=== PATIENT | male | born 1940 | race Caucasian/White ===

== ENCOUNTER 2019-12-24 07:33 | Outpatient (CLI) | payer MEDICARE, SELFPAY ==
[2019-12-24 08:01] LABS: Anion Gap 9 mmol/L (8-16); Blood Urea Nitrogen 27 mg/dL (9-20); Carbon Dioxide 24 mmol/L (22-30); Chloride 103 mmol/L (98-107); Estimated Glomerular Filt Rate 54; Glucose 101 mg/dL (75-110); Potassium 4.5 mmol/L (3.4-5.0); Sodium 136 mmol/L (137-145)
== END 2019-12-24 07:34 | disposition home or self-care (01) ==
PROVIDERS: PCP Internal Medicine; Visit Provider Nurse Practitioner
DX: R79.89 Other specified abnormal findings of blood chemistry (principal); I10 Essential (primary) hypertension
CPT/HCPCS: 36415; 80048

== ENCOUNTER 2020-03-10 12:18 | Outpatient (CLI) | payer MEDICARE, SELFPAY ==
--- NOTE | ~2020-03-10 | XR_ITS ---
EXAMINATION: XR chest 2V DATE: 03/10/2020 12:34 INDICATION: Shortness of breath. TECHNIQUE: Frontal and lateral views of the chest were obtained. COMPARISON: Chest 2 views 12/10/2013 FINDINGS: There is mild scarring at right lung base. No pleural effusion or pneumothorax. The heart s ize is normal. There is a left shoulder arthroplasty. IMPRESSION: 1. Stable mild scarring at right lung base. Reviewed, dictated and finalized at location A.
== END 2020-03-10 12:19 | disposition home or self-care (01) ==
PROVIDERS: PCP Internal Medicine; Visit Provider Nurse Practitioner
DX: R06.02 Shortness of breath (principal); R91.8 Other nonspecific abnormal finding of lung field
CPT/HCPCS: 71046

== ENCOUNTER 2020-04-15 07:25 | Outpatient (CLI) | payer MEDICARE, SELFPAY ==
--- NOTE | 2020-04-18 08:43 | WPDPFTINT ---
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 This pattern does not fit any particular disease or condition but may be seen in CHF, ILD or combination of medical conditions. Clinical correlation is advised.
== END 2020-04-15 07:26 | disposition home or self-care (01) ==
PROVIDERS: PCP Internal Medicine; Visit Provider Nurse Practitioner
DX: R06.02 Shortness of breath (principal)
CPT/HCPCS: 94060; 94726; 94729

== ENCOUNTER 2020-04-26 10:55 | Outpatient (CLI) | payer MEDICARE, SELFPAY ==
[2020-04-26 11:34] LABS: Basophils Absolute Auto 0.1 K/mm3 (0.0-0.1); Basophils Percent Auto 0.6 % (0.2-1.2); Eosinophils Absolute Auto 0.2 K/mm3 (0-0.3); Eosinophils Percent Auto 1.6 % (0-4.4); Hematocrit 48.2 % (42.0-52.0); Hemoglobin 16.2 g/dL (14.0-18.0); Immature Granulocyte Absolute 0.04 K/mm3 (0.00-0.031); Immature Granulocyte Percent A 0.3 % (0-0.5); Lymphocytes Absolute Auto 3.08 K/mm3 (0.9-3.2); Lymphocytes Percent Auto 25.8 % (18.3-44.2); Mean Corpuscular HGB Conc 33.6 g/dl (32-36); Mean Corpuscular Hemoglobin 30.1 pg (26-34); Mean Corpuscular Volume 89.4 fl (80-100); Mean Platelet Volume 10.7 fl (7.4-10.4); Monocytes Absolute Auto 0.9 K/mm3 (0.1-0.6); Monocytes Percent Auto 7.1 % (2.6-8.5); Neutrophils Absolute Auto 7.7 K/mm3 (1.3-6.7); Neutrophils Percent Auto 64.6 % (45.5-73.1); Platelet Count Result 200 k/mm3 (150-375); Red Blood Count 5.39 M/mm3 (4.6-6.20); Red Cell Distribution Width 13.6 % (11.5-14.5); White Blood Count 11.9 K/mm3 (4.5-10.0)
[2020-04-26 11:45] LABS: Anion Gap 8 mmol/L (8-16); Blood Urea Nitrogen 20 mg/dL (9-20); Calcium 9.2 mg/dL (8.4-10.2); Carbon Dioxide 25 mmol/L (22-30); Chloride 102 mmol/L (98-107); Estimated Glomerular Filt Rate > 60; Glucose 92 mg/dL (75-110); Potassium 4.2 mmol/L (3.4-5.0); Sodium 135 mmol/L (137-145)
== END 2020-04-26 10:56 | disposition home or self-care (01) ==
LOC: ANHLAB 10:58
PROVIDERS: PCP Internal Medicine; Visit Provider Clinical Nurse Specialist
DX: I10 Essential (primary) hypertension (principal)
CPT/HCPCS: 36415; 80048; 85025

== ENCOUNTER 2020-04-30 14:16 | Outpatient (CLI) | payer MEDICARE, SELFPAY ==
--- NOTE | ~2020-04-30 | CT_ITS ---
EXAMINATION: CT chest high resolution [facility] EXAM DATE: 04/30/2020 14:39 INDICATION: Z77.090 -asbestos exposure. TECHNIQUE: Spiral CT of the chest without contrast. HRCT Axial, coronal and sagittal images were rev iewed. Coronal maximum intensity pixel images of chest reviewed. The dose-length product (DLP) for this examination was 512.44 mGy-cm. The exposure was tailored according to patient size (auto mA exp osure control), and iterative reconstruction (ASIR) was used as additional dose reduction technique. There is no prior study for comparison. FINDINGS: Images are limited from respiratory motion. No calcified pleural plaques or definite nonca lcified plaques identified. No significant interlobular septal thickening on the HRCT. There are no pleural or pericardial effusions. Tracheobronchial tree is patent. There is no mediastinal, hilar or axillary lymphadenopathy. There is no pneumothorax. Mild cardiomegaly. There is mild coronary arterial calcification, arterial sclerosis. Upper abdomen is unremarkable. There is moderate thor acic spondylosis without osteoblastic or osteolytic lesions identified. Patient has left shoulder rep lacement. IMPRESSION: 1. Mild cardiomegaly. 2. Limited but no definite stigmata of asbestos exposure. Reviewed, dictated and finalized at location A. 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
== END 2020-04-30 14:17 | disposition home or self-care (01) ==
LOC: ANHIMG 14:23
PROVIDERS: PCP Internal Medicine; Visit Provider Nurse Practitioner
DX: Z77.090 Contact with and (suspected) exposure to asbestos (principal); I51.7 Cardiomegaly
CPT/HCPCS: 71250

== ENCOUNTER 2020-05-19 08:39 | Outpatient (CLI) | payer MEDICARE, SELFPAY ==
[2020-05-19 09:05] LABS: Basophils Absolute Auto 0.1 K/mm3 (0.0-0.1); Basophils Percent Auto 0.4 % (0.2-1.2); Eosinophils Absolute Auto 0.3 K/mm3 (0-0.3); Eosinophils Percent Auto 2.5 % (0-4.4); Hemoglobin 14.3 g/dL (14.0-18.0); Immature Granulocyte Absolute 0.03 K/mm3 (0.00-0.031); Immature Granulocyte Percent A 0.3 % (0-0.5); Lymphocytes Absolute Auto 4.08 K/mm3 (0.9-3.2); Lymphocytes Percent Auto 35.8 % (18.3-44.2); Mean Corpuscular HGB Conc 33.3 g/dl (32-36); Mean Corpuscular Hemoglobin 29.4 pg (26-34); Mean Corpuscular Volume 88.5 fl (80-100); Mean Platelet Volume 10.4 fl (7.4-10.4); Monocytes Absolute Auto 0.9 K/mm3 (0.1-0.6); Neutrophils Absolute Auto 6.1 K/mm3 (1.3-6.7); Platelet Count Result 225 k/mm3 (150-375); Red Blood Count 4.86 M/mm3 (4.6-6.20); Red Cell Distribution Width 13.8 % (11.5-14.5); White Blood Count 11.4 K/mm3 (4.5-10.0)
== END 2020-05-19 08:40 | disposition home or self-care (01) ==
LOC: ANHLAB 08:41
PROVIDERS: PCP Internal Medicine; Visit Provider Clinical Nurse Specialist
DX: D72.829 Elevated white blood cell count, unspecified (principal)
CPT/HCPCS: 36415; 85025

== ENCOUNTER 2020-05-31 07:37 | Outpatient (CLI) | payer MEDICARE, SELFPAY ==
--- NOTE | 2020-05-31 07:46 | ECHO_ITS ---
Patient Info Name: Nikko Hassan Age: 79 years : 1940 Gender: Male Ht: 70 in Wt: 250 lbs BSA: 2.41 m2 HR: 85 bpm BP: 168 / 79 mmHg Technical Quality: Good Exam Date: 05/31/2020 8:08 AM Exam Location: [facility] Patient Status: Outpatient Admit Date: 05/31/2020 Staff Ordering Physician: Yesi Troy Nurse Executive: Randy Bernabe RDCS, RT Attending Provider: Yesi Troy Referring Physician: Woodrow HERNÁNDEZ; Exam Type: CA echo doppler color flow Study Info Indications R06.02 - Shortness of breath Complete two-dimensional, color flow and Doppler transthoracic echocardiogram is performed. Summary 1. Complete two-dimensional, color flow and Doppler transthoracic echocardiogram is performed. 2. Left ventricular chamber dimension is normal. 3. Left ventricular systolic function is normal, estimated at 60-65%. 4. There is mildly increased left ventricular wall thickness. 5. The left ventricular diastolic function is grade I diastolic dysfunction. 6. E/e' 11 is mildly elevated. 7. There is moderate aortic valve sclerosis. 8. The mitral valve has mildly calcified annulus. 9. There is trace tricuspid valve regurgitation. 10. Mild pulmonary hypertension, estimated pulmonary arterial systolic pressure is 46 mmHg. Left Ventricle E/e' 11 is mildly elevated. Left ventricular chamber dimension is normal. Left ventricular systolic function is normal, estimated at 60-65%. There is mildly increased left ventricular wall thickness. The left ventricular diastolic function is grade I diastolic dysfunction. Right Ventricle Right ventricular chamber dimension is normal. Right ventricular systolic function is normal. Left Atria Left atrial chamber dimension is normal. Right Atria Right atrial chamber dimension is normal. Aortic Valve The aortic valve is trileaflet. There is moderate aortic valve sclerosis. There is no aortic valve stenosis. There is no aortic valve regurgitation. Pulmonic Valve There is no pulmonic regurgitation. Mitral Valve The mitral valve has mildly calcified annulus. There is no mitral valve stenosis. There is no mitral valve regurgitation. Tricuspid Valve There is trace tricuspid valve regurgitation. Mild pulmonary hypertension, estimated pulmonary arterial systolic pressure is 46 mmHg. Pericardium/Pleural There is no pericardial effusion. Inferior Vena Cava Normal inferior vena cava with >50% collapse upon inspiration consistent with normal right atrial pressure, 5 mmHg. Aorta The aortic root size at the sinus of Valsalva is normal. Left Ventricular Outflow Tract Name Value Normal LVOT 2D LVOT Diameter 2.0 cm LVOT Doppler LVOT Peak Gradient 5 mmHg LVOT Mean Gradient 3 mmHg LVOT VTI 26 cm LVOT VTI/AV VTI Ratio 0.6 LVOT Stroke Volume 83 ml LVOT CO 5.6 l/min LVOT CI 2.3 l/min/m2 Mitral Valve
== END 2020-05-31 07:38 | disposition home or self-care (01) ==
PROVIDERS: PCP Internal Medicine; Visit Provider Clinical Nurse Specialist
DX: R06.02 Shortness of breath (principal)
CPT/HCPCS: 93306

== ENCOUNTER 2020-08-13 07:42 | Outpatient (CLI) | payer MEDICARE, SELFPAY ==
--- NOTE | 2020-08-24 12:34 | WPDSIXMINUTE ---
Six Minute Walk This is a 6 minutes walk test. The test was performed and interpreted in accordance with the 2014 ERS/ATS task force guidelines. Findings: The patient's resting room air oxygen saturation measured by pulse oximetry was 96% and her heart rate was 79 bpm. Patient ambulated for 229 meters and oxygen saturation remained 94 to 97%. Heart rate at the end of the study was 82 bpm. There are no prior studies for comparison. Six Minute Walk Procedure Procedure Performed Pulmonary Stress Test (6 min walk)
== END 2020-08-13 07:43 | disposition home or self-care (01) ==
PROVIDERS: PCP Internal Medicine; Visit Provider Internal Medicine Critical Care Medicine
DX: R06.02 Shortness of breath (principal)
CPT/HCPCS: 94618

== ENCOUNTER → 2020-08-14 01:56 | Outpatient (CLI) | payer MEDICARE, SELFPAY ==
[2020-08-14 19:34] LABS: SARS-CoV-2 RNA PCR Negative
== END ==
PROVIDERS: PCP Internal Medicine; Visit Provider Internal Medicine Critical Care Medicine
DX: R68.89 Other general symptoms and signs (principal); Z20.822 Contact with and (suspected) exposure to COVID-19
CPT/HCPCS: C9803; U0003; U0005

== ENCOUNTER 2020-08-18 09:06 | Outpatient (CLI) | payer MEDICARE, SELFPAY ==
--- NOTE | 2020-09-03 13:06 | WPDSLEEPSTUD ---
Sleep Study Date of Study: 08/17/20 Ordering Provider: Cynthia Yee MD Interpreting Physician: Mago Benjamin MD Sleep Study Type: Split Polysomnogram Height: 1.78 m Weight: 111.13 kg Body Mass Index: 35.2 Neck Circumference (inches): 20 Holt: 1 Reason for Sleep Study Wakes up frequently at night to urinate, daytime naps, poor quality sleep Sleep History Nikko Hassan is a 80 year-old man with pulmonary hypertension on an echocardiogram, RVSP 43 mmHg. He was being evaluated for dyspnea on exertion over the last few years with wheezing on exhalation which tends to occur at night. His pulmonary function test shows combined obstructive and restrictive ventilatory defect. He has frequent nighttime awakenings to urinate, afternoon naps. This is what prompted his pulmonary doctor to inquire about sleep apnea. He does not complain of snoring loudly or awakening at night with heartburn and belching or coughing. He does not awaken from sleep feeling short of breath or he had trouble sleeping with a cold. He does not gasp for breath at night or have breathing problems observed by others. He rarely sweats excessively night. He does not notice his heart pounding or beating irregularly night. He rarely falls asleep during the day, never involuntarily or while driving. He does not fall asleep while exerting physical effort. He does not have loss of muscle tone was strong emotion. He does not have daytime difficulties due to excessive sleepiness, he is retired. He does not feel paralyzed on waking or falling asleep. He does not have vivid dreamlike scenes upon awakening or falling asleep. He does not feel afraid to go to sleep. He denies having nightmares. He does not remember his dreams. He does not have racing thoughts, feelings of sadness, depression or anxiety. He does not have muscular tension. He does not notice part of his body jerking. He does not kick at night or have crawling or aching feelings in his legs. He occasionally has leg pain at night. He does not have morning jaw pain. He does not grind his teeth during sleep and he is not bothered by pain during the day. He is not awakened by pain at night, does not wake up feeling stiff in the morning with sore achy muscles are pain in the neck and spine. Normal bedtime is 11:00 p.m. falling asleep within 20 minutes waking 2-3 times at night to go urinate. It takes him about 15 minutes to get back to sleep. He wakes between 6 and 7 in the morning. His weekend schedule is the same getting 6-7 hours of sleep at night. He sometimes feels refreshed after a short nap. Habits: Never smoked tobacco. Caffeine 1 per day. No alcohol. No recreational drugs. FOR[facility]LY [facility] Past Medical History Medical History BPH (benign prostatic hyperplasia) Chronic left shoulder pain Elevated serum creatinine Essential hypertension Hypercholesterolemia Leukocytosis Paresthesia of both lower extremities Family History Family History Mother Hypertension Sibling Hypertension Family history of malignant neoplasm Social History Social History Smoking status: Never smoker Second hand tobacco smoke exposure: No Alcohol intake: never Medications Home Medications Medication Instructions Recorded Confirmed Type tamsulosin 0.4 mg capsule 0.4 mg PO DAILY 04/02/19 05/03/20 History lisinopril 30 mg tablet See Rx Instructions .ROUTE 01/26/20 05/03/20 Rx .COMPLEX #90 tablet aspirin 81 mg tablet,delayed 81 mg PO DAILY 03/10/20 05/03/20 History release atorvastatin 10 mg tablet 10 mg PO DAILY #90 tablet 06/14/20 Rx fluticasone propionate 115 2 puff INHALATION BID #12 g 08/16/20 Rx mcg-salmeterol 21 mcg/actuation HFA inhaler inhalational spacing device #1 ea 08/16/20 Rx Sleep Procedure This test wa
[2020-09-03 13:16] VITALS: BMI 35.2
== END 2020-08-18 09:07 | disposition home or self-care (01) ==
LOC: ANHCSM 09:06
PROVIDERS: PCP Internal Medicine; Visit Provider Internal Medicine Critical Care Medicine
DX: G47.33 Obstructive sleep apnea (adult) (pediatric) (principal)
CPT/HCPCS: 95811

== ENCOUNTER 2020-11-24 07:10 | Outpatient (CLI) | payer MEDICARE, SELFPAY ==
[2020-11-24 08:01] LABS: Basophils Percent Auto 0.4 % (0.2-1.2); Eosinophils Absolute Auto 0.3 K/mm3 (0-0.3); Eosinophils Percent Auto 2.5 % (0-4.4); Immature Granulocyte Absolute 0.02 K/mm3 (0.00-0.031); Immature Granulocyte Percent A 0.2 % (0-0.5); Lymphocytes Absolute Auto 3.04 K/mm3 (0.9-3.2); Lymphocytes Percent Auto 29.7 % (18.3-44.2); Mean Corpuscular HGB Conc 32.6 g/dl (32-36); Mean Corpuscular Hemoglobin 29.5 pg (26-34); Mean Corpuscular Volume 90.7 fl (80-100); Monocytes Absolute Auto 0.8 K/mm3 (0.1-0.6); Monocytes Percent Auto 7.5 % (2.6-8.5); Neutrophils Absolute Auto 6.1 K/mm3 (1.3-6.7); Neutrophils Percent Auto 59.7 % (45.5-73.1); Platelet Count Result 201 k/mm3 (150-375); Red Blood Count 4.74 M/mm3 (4.6-6.20); Red Cell Distribution Width 13.9 % (11.5-14.5); White Blood Count 10.2 K/mm3 (4.5-10.0)
[2020-11-24 08:10] LABS: Anion Gap 7 mmol/L (8-16); Blood Urea Nitrogen 18 mg/dL (9-20); Calcium 9.2 mg/dL (8.4-10.2); Carbon Dioxide 27 mmol/L (22-30); Chloride 104 mmol/L (98-107); Cholesterol 128 mg/dL (0-200); Estimated Glomerular Filt Rate 59; Glucose 96 mg/dL (75-110); HDL Direct 37 mg/dL; Potassium 4.5 mmol/L (3.4-5.0); Sodium 138 mmol/L (137-145); Triglycerides 62 mg/dL (<150)
[2020-11-24 08:20] LABS: LDL Cholesterol Direct 67 mg/dL
== END 2020-11-24 07:11 | disposition home or self-care (01) ==
LOC: ANHLAB 07:12
PROVIDERS: PCP Internal Medicine; Visit Provider Clinical Nurse Specialist
DX: D72.829 Elevated white blood cell count, unspecified (principal); E78.00 Pure hypercholesterolemia, unspecified; I10 Essential (primary) hypertension
CPT/HCPCS: 36415; 80048; 80061; 85025

== ENCOUNTER 2021-04-29 08:51 | Outpatient (CLI) | payer MEDICARE, SELFPAY ==
[2021-04-29 09:27] LABS: Alanine Aminotransferase 17 U/L (4-50); Albumin Level 3.8 g/dL (3.5-5.1); Alkaline Phosphatase 77 U/L (38-126); Anion Gap 9 mmol/L (8-16); Aspartate Amino Transferase 26 U/L (17-59); Bilirubin,Total 0.7 mg/dL (0.2-1.3); Blood Urea Nitrogen 17 mg/dL (9-20); Calcium 8.7 mg/dL (8.4-10.2); Carbon Dioxide 22 mmol/L (22-30); Chloride 108 mmol/L (98-107); Cholesterol 124 mg/dL (0-200); Estimated Glomerular Filt Rate 59; Glucose 102 mg/dL (65-110); HDL Direct 39 mg/dL; Potassium 4.4 mmol/L (3.4-5.0); Sodium 139 mmol/L (137-145); Triglycerides 57 mg/dL (<150)
[2021-04-29 09:30] LABS: Basophils Absolute Auto 0.1 K/mm3 (0.0-0.1); Basophils Percent Auto 0.6 % (0.2-1.2); Eosinophils Absolute Auto 0.3 K/mm3 (0-0.3); Eosinophils Percent Auto 2.9 % (0-4.4); Hematocrit 43.5 % (42.0-52.0); Hemoglobin 14.4 g/dL (14.0-18.0); Immature Granulocyte Absolute 0.04 K/mm3 (0.00-0.031); Immature Granulocyte Percent A 0.4 % (0-0.5); Immature Platelet Fraction Pct 8.8 % (0.9-11.2); Lymphocytes Absolute Auto 3.07 K/mm3 (0.9-3.2); Lymphocytes Percent Auto 29.3 % (18.3-44.2); Mean Corpuscular HGB Conc 33.1 g/dl (32-36); Mean Corpuscular Hemoglobin 30.6 pg (26-34); Mean Corpuscular Volume 92.6 fl (80-100); Mean Platelet Volume 11.4 fl (7.4-10.4); Monocytes Absolute Auto 0.8 K/mm3 (0.1-0.6); Neutrophils Absolute Auto 6.2 K/mm3 (1.3-6.7); Neutrophils Percent Auto 58.8 % (45.5-73.1); Platelet Count Result 184 k/mm3 (150-375); White Blood Count 10.5 K/mm3 (4.5-10.0)
[2021-04-29 09:34] LABS: LDL Cholesterol Direct 67 mg/dL
== END 2021-04-29 08:52 | disposition home or self-care (01) ==
PROVIDERS: PCP Internal Medicine; Visit Provider Clinical Nurse Specialist
DX: E78.00 Pure hypercholesterolemia, unspecified (principal); D72.829 Elevated white blood cell count, unspecified; I10 Essential (primary) hypertension
CPT/HCPCS: 36415; 80053; 80061; 85025; 85055

== ENCOUNTER 2022-04-03 14:28 | Outpatient (CLI) | payer MEDICARE, SELFPAY ==
--- NOTE | ~2022-04-03 | MR_ITS ---
EXAMINATION: MR lumbar spine wo con DATE: 04/03/2022 15:25 INDICATION: Lumbar radiculopathy. TECHNIQUE: Magnetic resonance imaging (MRI) of the lumbar spine was performed without intravenous con trast. Sequences included sagittal T2-weighted FSE, sagittal T2-weighted FS FSE, sagittal T1-weighted FSE, and axial T2-weighted FSE. COMPARISON: Lumbar spine MRI 09/07/2015 FINDINGS: There is 4 degrees levocurvature of lumbar spine. There is mild chronic anterior wedging of T12 and L1 vertebral bodies. There are Schmorl's nodes at multiple levels. There is mildly decreased disc height at L1-L2 at L2-L3 and moderately decreased disc height at L3-L4. There is severely decre ased disc height at L4-L5 with interbody fusion. Epidural lipomatosis is noted. There is ligamentum f lavum hypertrophy at the disc levels in lumbar spine. The distal spinal cord signal intensity is norm al. The conus medullaris is at L1. The following disc levels are specifically discussed: L1-L2: The disc is bulging. There is moderate bilateral facet joint osteoarthritis. There is mild bridgett ateral neural foraminal stenosis. There is mild central canal stenosis. L2-L3: The disc is bulging and has an annular fissure. There is severe bilateral facet joint osteoart hritis. There is mild bilateral neural foraminal stenosis. There is moderate central canal stenosis. L3-L4: The disc is bulging and has an annular fissure. There is severe bilateral facet joint osteoart hritis. There is moderate bilateral neural foraminal stenosis. There is moderate central canal stenos is. L4-L5: There is severe bilateral facet joint osteoarthritis. There is moderate bilateral neural hannah inal stenosis. There is mild central canal stenosis. L5-S1: The disc does not extend beyond the endplate margin. There is mild bilateral facet joint hyper trophy. There is no neural foraminal stenosis. There is no central canal stenosis. IMPRESSION: 1. Moderate lumbar spondylosis, stable from 09/07/2015. 2. Interbody fusion at L4-L5. Reviewed, dictated and finalized at location A. WORKER
== END 2022-04-03 14:29 | disposition home or self-care (01) ==
PROVIDERS: PCP Internal Medicine; Visit Provider Nurse Practitioner
DX: M47.26 Other spondylosis with radiculopathy, lumbar region (principal); Z98.1 Arthrodesis status
CPT/HCPCS: 72148

== ENCOUNTER 2022-06-29 14:17 | Outpatient (CLI) | payer MEDICARE, SELFPAY ==
[2022-06-29 19:49] LABS: Alanine Aminotransferase 24 U/L (6-50); Albumin Level 4.3 g/dL (3.5-5.1); Alkaline Phosphatase 78 U/L (38-126); Anion Gap 5 mmol/L (8-16); Aspartate Amino Transferase 30 U/L (17-59); Bilirubin,Total 0.6 mg/dL (0.2-1.3); Blood Urea Nitrogen 19 mg/dL (9-20); Calcium 8.9 mg/dL (8.4-10.2); Carbon Dioxide 28 mmol/L (22-30); Chloride 104 mmol/L (98-107); Estimated Glomerular Filt Rate 53; Glucose 86 mg/dL (65-110); Sodium 137 mmol/L (137-145)
[2022-06-29 20:48] LABS: Basophils Absolute Auto 0.1 K/mm3 (0.0-0.1); Basophils Percent Auto 0.6 % (0.2-1.2); Eosinophils Absolute Auto 0.1 K/mm3 (0-0.3); Eosinophils Percent Auto 1.4 % (0-4.4); Hematocrit 42.7 % (42.0-52.0); Hemoglobin 14.3 g/dL (14.0-18.0); Immature Granulocyte Absolute 0.04 K/mm3 (0.00-0.031); Immature Granulocyte Percent A 0.4 % (0-0.5); Lymphocytes Absolute Auto 2.37 K/mm3 (0.9-3.2); Lymphocytes Percent Auto 23.3 % (18.3-44.2); Mean Corpuscular HGB Conc 33.5 g/dl (32-36); Mean Corpuscular Hemoglobin 30.5 pg (26-34); Mean Platelet Volume 11.4 fl (7.4-10.4); Monocytes Percent Auto 9.5 % (2.6-8.5); Neutrophils Absolute Auto 6.6 K/mm3 (1.3-6.7); Neutrophils Percent Auto 64.8 % (45.5-73.1); Platelet Count Result 236 k/mm3 (150-375); Red Blood Count 4.69 M/mm3 (4.6-6.20); Red Cell Distribution Width 14.3 % (11.5-14.5); White Blood Count 10.2 K/mm3 (4.5-10.0)
== END 2022-06-29 14:18 | disposition home or self-care (01) ==
LOC: ANHGOSHLAB 14:19
PROVIDERS: PCP Internal Medicine; Visit Provider Nurse Practitioner
DX: Z01.818 Encounter for other preprocedural examination (principal); D72.829 Elevated white blood cell count, unspecified; I10 Essential (primary) hypertension
CPT/HCPCS: 36415; 80053; 85025

== ENCOUNTER → 2023-02-13 14:00 | Outpatient (CLI) | payer MEDICARE, SELFPAY ==
--- NOTE | ~2023-02-13 | XR_ITS ---
XR_[id number]_CR DATE: 02/13/2023 14:24 INDICATION: Right knee pain TECHNIQUE: AP and lateral views COMPARISON: None FINDINGS: There is prominent tricompartment osteoarthritis, most severe at the medial compartment whe re there is near-complete loss of joint space. There is prominent periarticular spurring at all 3 com partments. No fracture or dislocation or joint effusion, periosteal reaction or bone destruction is evident. IMPRESSION: Prominent tricompartment osteoarthritis, most severe at the medial compartment Reviewed, dictated and finalized at Location A. Reviewed, dictated and finalized at location L.
== END ==
PROVIDERS: PCP Nurse Practitioner; Visit Provider Nurse Practitioner
DX: M17.11 Unilateral primary osteoarthritis, right knee (principal)
CPT/HCPCS: 73560

== ENCOUNTER 2023-03-20 15:33 | Emergency (ER) | payer OTHER, MEDICARE, SELFPAY ==
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
[2023-03-20 15:32] VITALS: BP 155/78; PULSE 82; RESP 20; TEMP 36.7; O2SAT 98
[2023-03-20 15:45] VITALS: BP 154/75; PULSE 79; RESP 21; O2SAT 97
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
[2023-03-20 17:27] VITALS: BP 154/78; PULSE 69; RESP 16; O2SAT 97
== END 2023-03-20 17:30 | disposition home or self-care (01) ==
PROVIDERS: Emergency Provider Emergency Medicine
DX: S46.912A Strain of unspecified muscle, fascia and tendon at shoulder and upper arm level, left arm, initial encounter (principal); I10 Essential (primary) hypertension; V43.52XA Car driver injured in collision with other type car in traffic accident, initial encounter; Y92.488 Other paved roadways as the place of occurrence of the external cause
CPT/HCPCS: 71046; 72100; 99284

== ENCOUNTER 2023-04-02 11:04 | Outpatient (CLI) | payer MEDICARE, SELFPAY ==
[2023-04-02 18:39] LABS: Alanine Aminotransferase 24 U/L (6-50); Alkaline Phosphatase 109 U/L (38-126); Anion Gap 9 mmol/L (8-16); Aspartate Amino Transferase 39 U/L (17-59); Bilirubin,Total 0.6 mg/dL (0.2-1.3); Blood Urea Nitrogen 15 mg/dL (9-20); Calcium 8.9 mg/dL (8.4-10.2); Carbon Dioxide 25 mmol/L (22-30); Chloride 104 mmol/L (98-107); Cholesterol 118 mg/dL (0-200); Estimated Glomerular Filt Rate > 60; Glucose 88 mg/dL (65-110); HDL Direct 31 mg/dL; Potassium 4.3 mmol/L (3.4-5.0); Sodium 138 mmol/L (137-145); Triglycerides 73 mg/dL (<150)
[2023-04-02 20:23] LABS: Basophils Absolute Auto 0.1 K/mm3 (0.0-0.1); Basophils Percent Auto 0.6 % (0.2-1.2); Eosinophils Absolute Auto 0.1 K/mm3 (0-0.3); Eosinophils Percent Auto 1.6 % (0-4.4); Hematocrit 45.9 % (42.0-52.0); Hemoglobin 13.7 g/dL (14.0-18.0); Immature Granulocyte Absolute 0.03 K/mm3 (0.00-0.031); Immature Granulocyte Percent A 0.3 % (0-0.5); Lymphocytes Absolute Auto 2.55 K/mm3 (0.9-3.2); Lymphocytes Percent Auto 28.7 % (18.3-44.2); Mean Corpuscular HGB Conc 29.8 g/dl (32-36); Mean Corpuscular Hemoglobin 29.2 pg (26-34); Mean Corpuscular Volume 97.9 fl (80-100); Mean Platelet Volume 11.5 fl (7.4-10.4); Monocytes Absolute Auto 0.8 K/mm3 (0.1-0.6); Monocytes Percent Auto 8.6 % (2.6-8.5); Neutrophils Absolute Auto 5.3 K/mm3 (1.3-6.7); Neutrophils Percent Auto 60.2 % (45.5-73.1); Platelet Count Result 203 k/mm3 (150-375); Red Blood Count 4.69 M/mm3 (4.6-6.20); Red Cell Distribution Width 14.7 % (11.5-14.5); White Blood Count 8.9 K/mm3 (4.5-10.0)
[2023-04-02 20:54] LABS: Hypochromasia 1+ (NORMAL); LDL Cholesterol Direct 69 mg/dL; Ovalocytes 1+ (NORMAL); Platelet Estimate Adequate (Adequate); Schistocytes None Seen (NORMAL)
== END 2023-04-02 11:05 | disposition home or self-care (01) ==
PROVIDERS: Visit Provider Nurse Practitioner
DX: D72.829 Elevated white blood cell count, unspecified (principal); E78.00 Pure hypercholesterolemia, unspecified; I10 Essential (primary) hypertension
CPT/HCPCS: 36415; 80053; 80061; 85025

== ENCOUNTER 2024-08-19 11:57 | Outpatient (CLI) | payer MEDICARE, SELFPAY ==
[2024-08-19 16:51] LABS: Alanine Aminotransferase 19 U/L (6-50); Albumin Level 3.8 g/dL (3.5-5.1); Alkaline Phosphatase 82 U/L (38-126); Anion Gap 8 mmol/L (4-12); Aspartate Amino Transferase 46 U/L (17-59); Bilirubin,Total 0.3 mg/dL (0.2-1.3); Blood Urea Nitrogen 20 mg/dL (9-20); Calcium 9.1 mg/dL (8.4-10.2); Carbon Dioxide 24 mmol/L (22-30); Chloride 106 mmol/L (98-107); Estimated Glomerular Filt Rate > 60; Glucose 81 mg/dL (65-110); Potassium 4.3 mmol/L (3.4-5.0); Sodium 138 mmol/L (137-145)
[2024-08-19 17:12] LABS: Basophils Absolute Auto 0.1 K/mm3 (0.0-0.1); Basophils Percent Auto 0.5 % (0.2-1.2); Eosinophils Absolute Auto 0.2 K/mm3 (0-0.3); Eosinophils Percent Auto 1.9 % (0-4.4); Hematocrit 42.4 % (42.0-52.0); Hemoglobin 13.6 g/dL (14.0-18.0); Immature Granulocyte Absolute 0.03 K/mm3 (0.00-0.031); Immature Granulocyte Percent A 0.3 % (0-0.5); Lymphocytes Percent Auto 21.9 % (18.3-44.2); Mean Corpuscular HGB Conc 32.1 g/dl (32-36); Mean Corpuscular Hemoglobin 29.6 pg (26-34); Mean Corpuscular Volume 92.2 fl (80-100); Mean Platelet Volume 11.8 fl (7.4-10.4); Monocytes Absolute Auto 0.9 K/mm3 (0.1-0.6); Monocytes Percent Auto 10.2 % (2.6-8.5); Neutrophils Absolute Auto 5.9 K/mm3 (1.3-6.7); Neutrophils Percent Auto 65.2 % (45.5-73.1); Platelet Count Result 221 k/mm3 (150-375); Red Cell Distribution Width 14.1 % (11.5-14.5); White Blood Count 9.1 K/mm3 (4.5-10.0)
== END 2024-08-19 11:58 | disposition home or self-care (01) ==
PROVIDERS: PCP Nurse Practitioner; Visit Provider Nurse Practitioner
DX: D72.829 Elevated white blood cell count, unspecified (principal); Z13.29 Encounter for screening for other suspected endocrine disorder
CPT/HCPCS: 36415; 80053; 85025

== ENCOUNTER 2024-08-21 09:42 | Outpatient (CLI) | payer MEDICARE, SELFPAY ==
--- OUTSIDE RECORDS SUMMARY | 2024-08-21 10:20 | XMS_ITS | Clinical Summary ---
Author Organization [facility] [address] [place] [address] [place] [address] Care Team Providers Care Thresher Broomcorn Name Role Phone Marshall Edouard DO Primary Care Provider +1- [phone] Allergies No known active allergies Medications atorvastatin (LIPITOR) 10 mg tablet daily 06/18/2018 Active hydroCHLOROthiaz colby (HYDRODIURIL) 12.5 mg tablet daily 07/11/2018 Acti ve lisinopril (PRINIVIL,ZESTRI L) 30 mg tablet daily 06/18/2018 Act sofie tamsulosin (FLOMAX) 0.4 mg extended release capsuleIndicatio ns:Benign prostatic hyperplasia with lower urinary tract symptoms, symptom details unspecified TAKE 1 CAPSULE BY MOUTH DAILY 30 capsule 01/29/2020 Active Active Problems Problem Noted Date Diagnosed Date Rotator cuff arthropathy of left shoulder 2018 Overview (08/12/2018): Added automatically from request for surgery [id number] Biceps tendinitis of left upper extremity 2018 Overview (08/12/2018): Added automatically from request for surgery [id number] Surgical History Surgery Date Site/Laterality Comments HAND AMPUTATION Left Ring finger, reattached LIP REPAIR bottom lip repaired Medical History Medical History Date Comments Hypertension Hypercholesteremia Hearing loss Family History Medical History Relation Name Comments Hyperlipidemia Father Hyperlipidemia Mother Relation Name Status Comments Father Mother Social History Tobacco Use Types Packs/Day Years Used Date Smoking Tobacco: Never Smokeless Tobacco: Never Alcohol Use Standard Drinks/Week Comments Not Currently 0 (1 standard drink = 0.6 oz pur e alcohol) PHQ-2 Answer Date Recorded PHQ-2 Score 0 01/03/2019 Sex and Gender Information Value Date Recorded Sex Assigned at Not on file Legal Sex Male 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 Gender Identity Not on file Sexual Orientation Not on file Obstetrics History Last Filed Vital Signs Vital Sign Reading Time Taken Comments Blood Pressure 162/82 01/28/2020 3:17 PM CDT Pulse 99 01/28/2020 3:17 PM CDT Temperature 36.3 C (97.3 F) 01/28/2020 3:17 PM CDT Respiratory Rate 16 08/22/2018 7:00 AM CDT Oxygen Saturation 92% 08/22/2018 7:00 AM CDT Inhaled Oxygen Concentration - - Weight 114.8 kg (253 lb) 01/28/2020 3:17 PM CDT Height 177.8 cm (5' 10 ) 01/28/2020 3:17 PM CDT Body Mass Index 36.3 01/28/2020 3:17 PM CDT Plan of Treatment Not on file Medical Devices Implanted Type Area Textile Engineer Device Identifier Shelf Expiration Date Model / Serial / Lot Exactech 320-20- Reverse Torque Define Shoulder Kit Screw - [id number] - [id number] Implanted:Qty: 1 on 08/20/2018 by Aric Vang MD at [facility] Left: Shoulder Exactech 07/08/2023 320-20-00 / [id number] / Exactech 320-15-05 Equinoxe Lock Reverse Shoulder Glenosphere Screw Bone - [id number] - [id number] Implanted:Qty: 1 on 08/20/2018 by Aric Vang MD at [facility] Left: Shoulder Exactech 04/09/2023 320-15-05 / [id number] / Exactech 320-15-03 Equinoxe Augment Posterior Glenoid Shoulder 8d Plate Bone - [id number] - [id number] Implanted:Qty: 1 on 08/20/2018 by Aric Vang MD at [facility] Left: Shoulder Exactech 11/12/2027 320-15-03 / [id number] / Exactech 320-20-38 Equinoxe 4.5mm 38mm Kit Compression Lock Cap Reverse Shoulder - [id number] - [id number] Implanted:Qty: 1 on 08/20/2018 by Aric Vang MD at [facility] Left: Shoulder Exactech 09/06/2022 320-20-38 / [id number] / Exactech 320-01-38 38mm Glenosphere Reverse Shoulder Component Glenoid - [id number] - [id number] Implanted:Qty: 1 on 08/20/2018 by Aric Vang MD at [facility] Left: Shoulder Exactech 07/03/2028 320-01-38 / [id number] / Exactech 320-20-34 Equinoxe 4.5mm 34mm Kit Compression Lock Cap Reverse Shoulder - [id number] - [id number] Implanted:Qty: 1 on 08/20/2018 by Aric Vang MD at [facility] Left: Shoulder Exactech 06/14/2023 320-20-34 / [id number] / Exactech 300-01-11 Equinoxe 11mm Press Fit Primary Shoulder Stem Humeral - [id number] - [id number] Implanted:Qty: 1 on 08/20/2018 by Aric Vang MD at [facility] Left: Humerus Exactech 12/20/2027 300-01-11 / [id number] / Exactech 320-10-00 Equinoxe Reverse Shoulder +0mm Tray Humeral Adapter - [id number] - [id number] Implanted:Qty: 1 on 08/20/2018 by Aric Vang MD at [facility] Left: Humerus Exactech 07/21/2028 320-10-00 / [id number] / Exactech 320-38-00 Equinoxe 38mm Reverse Shoulder +0mm Liner Humeral - [id number] - [id number] Implanted:Qty: 1 on 08/20/2018 by Aric Vang MD at [facility] Left: Shoulder Exactech 06/30/2023 320-38-00 / [id number] / Insurance R HMO REF Member Subscriber Plan / Payer (Ef fective 2018-Present) Name:Nikko Hassan Relation to Subscriber:Self Name:Nikko Hassan Payer ID:[id number] (NAIC) Type:[facility] MEDICARE Address: [place] [id number] HMO REF Member Subscriber Plan / Payer (Ef fective 2018-Present) Name:Nikko Hassan Relation to Subscriber:Self Name:Nikko Hassan Payer ID:[id number] (NAIC) Type:[facility] MEDICARE Address: [place] [id number] R HMO REF Member Subscriber Plan / Payer (Ef fective 2018-Present) Name:Nikko Hassan Relation to Subscriber:Self Name:Nikko Hassan Payer ID:[id number] (NAIC) Type:[facility] MEDICARE Address: [place] [id number] Advance Directives For more information, please contact: [phone] * Full Code (Latest Code Status on File) Date Activated Date Inactivated Comments 08/20/2018 12:07 PM 08/22/2018 9:04 PM Care Teams Thresher Broomcorn Relationship Specialty Start Date End Date Marshall Edouard, PCP - General Internal Medicine 07/11/18
--- OUTSIDE RECORDS SUMMARY | 2024-08-21 10:20 | XMS_ITS | Referral Summary ---
Author Organization [facility] [address] [place] [address] [place] [address] Care Team Providers Care Strickler Attendant Name Role Phone Marshall Edouard DO Primary Care Provider +1- [phone] Allergies No known active allergies Medications atorvastatin [...] (08/12/2018): Added automatically from request for surgery [id number] Biceps tendinitis of left upper extremity 2018 Overview (08/12/2018): Added automatically from request for surgery [id number] Social History Tobacco Use Types Packs/Day Years Used Date Smoking Tobacco: Never Smokeless Tobacco: Never Alcohol Use Standard Drinks/Week Comments Not Currently 0 (1 standard drink = 0.6 oz pur e alcohol) PHQ-2 Answer Date Recorded PHQ-2 Score 0 01/03/2019 Sex and Gender Information Value Date Recorded Sex Assigned at Not on file 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 Gender Identity Not on file Sexual Orientation Not on file Last Filed Vital Signs Vital Sign Reading [...] on file Medical Devices Implanted Type Area Nursing Department Chairperson Device Identifier Shelf Expiration Date Model / Serial / Lot Exactech 320-20-00 Reverse Torque Define Shoulder Kit Screw - [id number] - [id number] Implanted:Qty: 1 on 08/20/2018 by Aric aVng MD at [facility] Left: Shoulder Exactech 07/08/2023 320-20-00 / [id number] / Exactech 320-15-05 Equinoxe Lock Reverse Shoulder Glenosphere Screw Bone - [id number] - [id number] Implanted:Qty: 1 on 08/20/2018 by Aric Vang MD at [facility] Left: Shoulder Exactech 04/09/2023 320-15-05 / [id number] / Exactech 320-15-03 Equinoxe Augment Posterior Glenoid Shoulder 8d Plate Bone - [id number] - [id number] Implanted:Qty: 1 on 08/20/2018 by Aric Vang MD at [facility] Left: Shoulder Exactech 11/12/2027 320-15-03 / [id number] / Exactech 320-20-38 Equinoxe 4.5mm 38mm Kit Compression Lock Cap Reverse Shoulder - [id number] - [id number] Implanted:Qty: 1 on 08/20/2018 by Aric Vang MD at [facility] Left: Shoulder Exactech 09/06/2022 320-20-38 / [id number] / Exactech 320-01-38 38mm Glenosphere Reverse Shoulder Component Glenoid - [id number] - [id number] Implanted:Qty: 1 on 08/20/2018 by Aric Vang MD at [facility] Left: Shoulder Exactech 07/03/2028 320-01-38 / [id number] / Exactech 320-20-34 Equinoxe 4.5mm 34mm Kit Compression Lock Cap Reverse Shoulder - [id number] - [id number] Implanted:Qty: 1 on 08/20/2018 by Aric Vang MD at [facility] Left: Shoulder Exactech 06/14/2023 320-20-34 / [id number] / Exactech 300-01-11 Equinoxe 11mm Press Fit Primary Shoulder Stem Humeral - [id number] - [id number] Implanted:Qty: 1 on 08/20/2018 by Aric Vang MD at [facility] Left: Humerus Exactech 12/20/2027 300-01-11 / [id number] / Exactech 320-10-00 Equinoxe Reverse Shoulder +0mm Tray Humeral Adapter - [id number] - [id number] Implanted:Qty: 1 on 08/20/2018 by Aric Vang MD at [facility] Left: Humerus Exactech 07/21/2028 320-10-00 / [id number] / Exactech 320-38-00 Equinoxe 38mm Reverse Shoulder +0mm Liner Humeral - [id number] - [id number] Implanted:Qty: 1 on 08/20/2018 by Aric Vang MD at [facility] Left: Shoulder Exactech 06/30/2023 320-38-00 / [id number] / Insurance [facility] RE[facility] R HMO REF R HMO REF Advance Directives For more information, please contact: [phone] * Full Code (Latest Code Status on File) Date Activated Date Inactivated Comments 08/20/2018 12:07 PM 08/22/2018 9:04 PM Care Teams Strickler Attendant Relationship Specialty Start Date End Date Marshall Edouard DO PCP - General Internal Medicine 07/11/18
--- OUTSIDE RECORDS SUMMARY | 2024-08-21 10:20 | XMS_ITS | Clinical Summary ---
Author Organization [facility] Address [address] [place] [address] Care Team Providers Care R&D Engineer Name Role Phone Marshall Edouard DO Primary Care Provider [phone]- [phone] Mago Benjamin MD Unavailable [phone] Allergies No known active allergies Medications tamsulosin (FLOMAX) 0.4 MG CapIndications:e nlarged prostate Take 1 capsule by mouth nightly. Indications: enlarged prostate 2 Active lisinopril (PRINIVIL) 30 MG tabletIndication s:altered blood pressure Take 1 tablet by mouth daily. Indications: altered blood pressure 2 Active atorvastatin (LIPITOR) 10 MG tabletIndication s:elevated cholesterol Take 1 tablet by mouth daily. Indications: elevated cholesterol 3 Active vitamin B-12 (CYANOCOBALAMIN) 100 MCG tabletIndication s:vitamin deficiency Take 50 mcg by mouth daily. Indications: vitamin deficiency Active Ascorbic Acid (VITAMIN C) 100 MG tabletIndication s:vitamin deficiency Take 100 mg by mouth daily. Indications: vitamin deficiency Active vitamin D3, cholecalciferol, 10 MCG (400 UNIT) tabletIndication s:vitamin deficiency Take 400 Units by mouth daily. Indications: vitamin deficiency Active HYDROcodone-acet aminophen (NORCO) 5-325 MG tabletIndication s:Acute Pain < 7 Day Supply,post op Take 1-2 tablets by mouth every 6 (six) hours as needed. Indications: Acute Pain < 7 Day Supply, post op 55 tablet 3 Active senna-docusate (SENOKOT-S) 8.6-50 MG tabletIndication s:stool softener Take 1 tablet by mouth daily. 60 tablet 1 3 Active Active Problems Problem Noted Date Diagnosed Date Lumbar stenosis with neurogenic claudication Family History Medical History Relation Comments Heart Disease Brother Hypertension Brother Breast Cancer Daughter Cancer Daughter Hypertension Father Hypertension Mother Cancer Sister 1 Hypertension Sister 1 Hypertension Sister 2 No Known Problems Son Relation Status Comments Brother Alive Daughter Alive Father Mother Sister 1 Alive Sister 2 Alive Son Alive Social History Tobacco Use Types Packs/Day Years Used Date Smoking Tobacco: Never Smokeless Tobacco: Never Alcohol Use Standard Drinks/Week Comments Not Currently 0 (1 standard drink = 0.6 oz pur e alcohol) OASIS D0700: Social Isolation Answer Da te Recorded Frequency of experiencing loneliness or isolatio n Never 08/09/2022 OASIS A1250: Transportation Answer Date Recorded Lack of Transportation (Medical) No 08/09/2022 Lack of Transportation (Non-Medical) No 08/09/2022 Patient Unable or Declines to Respond No 08/09/2022 OASIS B1300: Health Literacy Answer Fuad e Recorded Frequency of needing help to read materials from doctor or pharmacy Never 08/09/2022 Humiliation, Afraid, Rape, and Kick questionnair e Answer Date Recorded Within the last year, have y ou been afraid of your partner or ex-partner? No 07/12/2022 Within the last year, have y ou been humiliated or emotionally abused in other ways by your partner or ex-partner? No Within the last year, have y ou been kicked, hit, slapped, or otherwise physically hurt by your partner or ex-partner? No 07/12/2022 Within the last year, have y ou been raped or forced to have any kind of sexual activity by your partner or ex-partner? No 07/12/2022 Overall Financial Resource Strain (CARDIA) Answe r Date Recorded How hard is it for you to pa y for the very basics like food, housing, medical care, and heating? Not hard at all 07/12/2022 Hunger Vital Sign Answer Date Recorded Within the past 12 months, y ou worried that your food would run out before you got the money to buy more. Never true 07/13/19 23 Within the past 12 months, t he food you bought just didn't last and you didn't have money to get more. Never true 07/12/2022 PRAPARE - Transportation Answer Date Re corded In the past 12 months, has l ack of transportation kept you from medical appointments or from getting medications? No 05/2022 In the past 12 months, has l ack of transportation kept you from meetings, work, or from getting things needed for daily living? No 07/12/2022 Housing Stability Vital Sign Answer Fuad e Recorded In the last 12 months, was t here a time when you were not able to pay the mortgage or rent on time? No 07/12/2022 In the last 12 months, how many places have you lived? 1 07/12/2022 In the last 12 months, was t here a time when you did not have a steady place to sleep or slept in a usp (including now)? 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 Gender Identity Not on file Sexual Orientation Not on file Last Filed Vital Signs Vital Sign Reading Time Taken Comments Blood Pressure 136/80 08/09/2022 2:08 PM CDT Pulse 78 08/09/2022 2:08 PM CDT Temperature 36.2 C (97.1 F) 07/27/2022 8:55 AM CDT Respiratory Rate 18 08/09/2022 2:08 PM CDT Oxygen Saturation 98% 08/09/2022 2:08 PM CDT Inhaled Oxygen Concentration - - Weight 123.5 kg (272 lb 4.3 oz) 07/17/2022 4:19 AM AGRICULTURAL EQUIPMENT SALES ENGINEER Height 177.8 cm (5' 10 ) 07/11/2022 10: 30 AM AGRICULTURAL EQUIPMENT SALES ENGINEER Body Mass Index 39.07 07/11/2022 10:30 AM AGRICULTURAL EQUIPMENT SALES ENGINEER Plan of Treatment Health Maintenance Due Date Last Done Comments DTaP, Tdap and Td Vaccines ( 1 - Tdap) 1959 Annual Medicare Wellness Visit 07/23/2007 RSV Immunization or 60+ Years (1 - 1-dose 75+ series) 2017 Pneumococcal Vaccine: 65+ Years (2 of 2 - PPSV23 or PCV20) 02/23/2018 02/23/2017 COVID-19 Vaccine (4 - 2023-2 5 season) 2024 05/22/2021, 08/09/2020, 07/15/2020 Zoster Vaccines Completed 04/26/2021, 02/22/2021 Meningococcal B Vaccine Aged Out No l onger eligible based on patient's age to complete this topic Meningococcal Vaccine Aged Out No ashlee alicia eligible based on patient's age to complete this topic RSV Immunizations Under 20 Months Aged Out No longer eligible b ased on patient's age to complete this topic Goals Goal Patient Goal Type Associated Problems Recent Progress Patient-Stated? Author Outpatient Goal Lifestyle No Waqas Sharma RN Note: Make a plan for discharge according to therapy recs. Medical Devices Implanted Type Area Hospice Office Coordinator Device Identifier Shelf Expiration Date Model / Serial / Lot Graft Duragen Matrix 1 X 1 - [id number] Implanted:Qty : 1 on 07/11/2022 by George Ashley MD at [facility] Dura N/A: Spine Lumbar [employer] [id number] / / Agent Hemostatic Thrombin Sterile Kit Matrix Surgiflo 8ml - [id number] Implanted:Qty : 1 on 07/11/2022 by George Ashley MD at [facility] Sealant [employer] 10/12/2023 [id number] / / [id number] Body, Top Loading Implanted:Qty : 8 on 07/11/2022 by George Ashley MD at [facility] Spine Components N/A: Spine Lumbar ORTHOFIX 36-2100 / / Set Screw Implanted:Qty : 8 on 07/11/2022 by George Ashley MD at [facility] Spine Components N/A: Spine Lumbar ORTHOFIX 36-2000 / / 6.5x50mm Screw Implanted:Qty : 6 on 07/11/2022 by George Ashley MD at [facility] Spine Components N/A: Spine Lumbar ORTHOFIX 44-5650 / / 6.5x55mm Screw Implanted:Qty : 2 on 07/11/2022 by Goerge Ashley MD at [facility] Spine Components N/A: Spine Lumbar ORTHOFIX 44-5655 / / 110mm Billy Implanted:Qty : 2 on 07/11/2022 by George Ashley MD at [facility] Spine Components N/A: Spine Lumbar ORTHOFIX 52-6110 / / Insurance [facility] MEDICAL REIMBURSEMENTS OF [facility] Advance Directives * Full Code (Latest Code Status on File) Date Activated Date Inactivated Comments 07/18/2022 3:04 PM * Full Code Date Activated Date Inactivated Comments 07/11/2022 7:44 PM 07/17/2022 6:26 PM Care Teams R&D Engineer Relationship Specialty Start Date End Date Marshall Edouard DO [facility] [address] [place] [id number] PCP - General INTERNAL MEDICINE 07/05/22 Mago Benjamin MD [address], [address] [place] [address] PULMONARY DISEASE 07/05/22
[2024-08-21 12:14] LABS: Urine Cotinine NEGATIVE
[2024-08-21 18:08] LABS: Hemoglobin A1C 5.3 % (<5.7)
== END 2024-08-21 09:43 | disposition home or self-care (01) ==
LOC: ANHSURGERY 09:46
PROVIDERS: PCP Nurse Practitioner; Visit Provider Orthopaedic Surgery
DX: Z01.812 Encounter for preprocedural laboratory examination (principal); M17.0 Bilateral primary osteoarthritis of knee; I10 Essential (primary) hypertension; E78.00 Pure hypercholesterolemia, unspecified
CPT/HCPCS: 80307; 83036; 87081

== ENCOUNTER 2024-08-25 07:43 | Outpatient (CLI) | payer MEDICARE, SELFPAY ==
--- NOTE | ~2024-08-25 | NM_ITS ---
EXAMINATION: NM tatyana stress w perfusion DATE: 08/25/2024 13:21 CDT INDICATION: Preprocedural cardiac examination TECHNIQUE: Rest images were obtained following intravenous administration of 11.7 mCi Tc99m tetrofosm in (Myoview). The patient was infused intravenously with Lexiscan (regadenoson). Then, 34.6 mCi Tc99m tetrofosmin (Myoview) was administered intravenously, and stress images were obtained. Data was lula nstructed into short axis and horizontal and vertical long axis SPECT images. Gated SPECT images were also obtained. COMPARISON: None. FINDINGS: There is no definite reversible or fixed perfusion abnormality to suggest ischemia or infar ction. There is no segmental wall motion abnormality. Left ventricular ejection fraction measures 6 9%. IMPRESSION: 1. No definite ischemia or infarct. 2. Normal left ventricular ejection fraction measuring 69%. Reviewed, dictated and finalized at location B.
--- OUTSIDE RECORDS SUMMARY | 2024-08-25 07:48 | XMS_ITS | Referral Summary ---
Author Organization [facility] [address] [place] [address] [place] [phone] Care Team Providers Care Certified Pesticide Applicator Name Role Phone Marshall Edouard DO Primary Care Provider +1- [phone] Allergies No known active allergies Medications atorvastatin [...] (08/12/2018): Added automatically from request for surgery [id number] Biceps tendinitis of left upper extremity 2018 Overview (08/12/2018): Added automatically from request for surgery [id number] Social History Tobacco Use Types Packs/Day Years Used Date Smoking Tobacco: Never Smokeless Tobacco: Never Alcohol Use Standard Drinks/Week Comments Not Currently 0 (1 standard drink = 0.6 oz pur e alcohol) PHQ-2 Answer Date Recorded PHQ-2 Score 0 01/03/2019 Sex and Gender Information Value Date Recorded Sex Assigned at Not on file Legal Sex Male 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 Gender Identity Not on file Sexual Orientation [...] on file Medical Devices Implanted Type Area Reading Teacher Device Identifier Shelf Expiration Date Model / Serial / Lot Exactech 320-20-00 Reverse Torque Define Shoulder Kit Screw - [id number] - [id number] Implanted:Qty: 1 on 08/20/2018 by Aric Vang MD at [facility] Left: Shoulder Exactech 07/08/2023 320-20-00 / [id number] / Exactech 320-15-05 Equinoxe Lock Reverse Shoulder Glenosphere Screw Bone - [id number] - [id number] Implanted:Qty: 1 on 08/20/2018 by Aric Vang MD at [facility] Left: Shoulder Exactech 04/09/2023 320-15-05 / [id number] / Exactech 320-15-03 Equinoxe Augment Posterior Glenoid Shoulder 8d Plate Bone - [id number] - [id number] Implanted:Qty: 1 on 08/20/2018 by Aric Vang MD at [facility] Left: Shoulder Exactech 11/12/2027 320-15-03 / [id number] / Exactech 320-20-38 Equinoxe 4.5mm 38mm Kit Compression Lock Cap Reverse Shoulder - [id number] - [id number] Implanted:Qty: 1 on 08/20/2018 by Aric Vang MD at [facility] Left: Shoulder Exactech 09/06/2022 320-20-38 / [id number] / Exactech 320-01-38 38mm Glenosphere Reverse Shoulder Component Glenoid - [id number] - [id number] Implanted:Qty: 1 on 08/20/2018 by Aric Vang MD at [facility] Left: Shoulder Exactech 07/03/2028 320-01-38 / [id number] / Exactech 320-20-34 Equinoxe 4.5mm 34mm Kit Compression Lock Cap Reverse Shoulder - [id number] - [id number] Implanted:Qty: 1 on 08/20/2018 by Aric Vang MD at [facility] Left: Shoulder Exactech 06/14/2023 320-20-34 / [id number] / Exactech 300-01-11 Equinoxe 11mm Press Fit Primary Shoulder Stem Humeral - [id number] - [id number] Implanted:Qty: 1 on 08/20/2018 by Aric Vang MD at [facility] Left: Humerus Exactech 12/20/2027 300-01-11 / [id number] / Exactech 320-10-00 Equinoxe Reverse Shoulder +0mm Tray Humeral Adapter - [id number] - [id number] Implanted:Qty: 1 on 08/20/2018 by Aric Vang MD at [facility] Left: Humerus Exactech 07/21/2028 320-10-00 / [id number] / Exactech 320-38-00 Equinoxe 38mm Reverse Shoulder +0mm Liner Humeral - [id number] - [id number] Implanted:Qty: 1 on 08/20/2018 by Aric Vang MD at [facility] Left: Shoulder Exactech 06/30/2023 320-38-00 / [id number] / [facility] Address: [address] [address] [place] [address] R HMO REF [facility] Address: [address] [address] [place] [address] R HMO REF [facility] Address: [address] [address] [place] [address] Advance Directives For more information, please contact: [phone] * Full Code (Latest Code Status on File) Date Activated Date Inactivated Comments 08/20/2018 12:07 PM 08/22/2018 9:04 PM Care Teams Certified Pesticide Applicator Relationship Specialty Start Date End Date Marshall Edouard DO PCP - General Internal Medicine 07/11/18
--- OUTSIDE RECORDS SUMMARY | 2024-08-25 07:48 | XMS_ITS | Clinical Summary ---
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 Gender Identity Not on file Sexual Orientation [...] on file Medical Devices Implanted Type Area Production Worker Device Identifier Shelf Expiration Date Model / Serial / Lot Exactech 320-20- Reverse Torque Define Shoulder Kit Screw - [id number] - [id number] Implanted:Qty: 1 on 08/20/2018 by Aric Vang MD at [facility] Left: Shoulder Exactech 07/08/2023 320-20-00 / [id number] / Exactech 320-15-05 Equinoxe Lock Reverse Shoulder Glenosphere Screw Bone - [id number] - [id number] Implanted:Qty: 1 on 08/20/2018 by Aric Vang MD at [facility] Left: Shoulder Exactech 04/09/2023 320-15-05 / [id number] / Exactech 320-15-03 Equinoxe Augment Posterior Glenoid Shoulder 8d Plate Bone - [id number] - [id number] Implanted:Qty: 1 on 08/20/2018 by Aric Vang MD at [facility] Left: Shoulder Exactech 11/12/2027 320-15-03 / [id number] / Exactech 320-20-38 Equinoxe 4.5mm 38mm Kit Compression Lock Cap Reverse Shoulder - [id number] - [id number] Implanted:Qty: 1 on 08/20/2018 by Aric Vang MD at [facility] Left: Shoulder Exactech 09/06/2022 320-20-38 / [id number] / Exactech 320-01-38 38mm Glenosphere Reverse Shoulder Component Glenoid - [id number] - [id number] Implanted:Qty: 1 on 08/20/2018 by Aric Vang MD at [facility] Left: Shoulder Exactech 07/03/2028 320-01-38 / [id number] / Exactech 320-20-34 Equinoxe 4.5mm 34mm Kit Compression Lock Cap Reverse Shoulder - [id number] - [id number] Implanted:Qty: 1 on 08/20/2018 by Aric Vang MD at [facility] Left: Shoulder Exactech 06/14/2023 320-20-34 / [id number] / Exactech 300-01-11 Equinoxe 11mm Press Fit Primary Shoulder Stem Humeral - [id number] - [id number] Implanted:Qty: 1 on 08/20/2018 by Aric Vang MD at [facility] Left: Humerus Exactech 12/20/2027 300-01-11 / [id number] / Exactech 320-10-00 Equinoxe Reverse Shoulder +0mm Tray Humeral Adapter - [id number] - [id number] Implanted:Qty: 1 on 08/20/2018 by Aric Vang MD at [facility] Left: Humerus Exactech 07/21/2028 320-10-00 / [id number] / Exactech 320-38-00 Equinoxe 38mm Reverse Shoulder +0mm Liner Humeral - [id number] - [id number] Implanted:Qty: 1 on 08/20/2018 by Aric Vang MD at [facility] Left: Shoulder Exactech 06/30/2023 320-38-00 / [id number] / Insurance R HMO REF Member Subscriber Plan / Payer (Ef fective 2018-Present) Name:Nikko Hassan Relation to Subscriber:Self Name:Nikko Hassan Payer ID:[id number] (NAIC) Type:[facility] MED[facility] Address: [place] [id number] HMO REF Member Subscriber Plan / Payer (Ef fective 2018-Present) Name:Nikko Hassan Relation to Subscriber:Self Name:Nikko Hassan Payer ID:[id number] (NAIC) Type:[facility] MEDIC[facility] Address: [place] [id number] R HMO REF Member Subscriber Plan / Payer (Ef fective 2018-Present) Name:Nikko Hassan Relation to Subscriber:Self Name:Nikko Hassan Payer ID:[id number] (NAIC) Type:[facility] MEDIC[facility] Address: [place] [phone] Advance Directives For more information, please contact: [phone] * Full Code (Latest Code Status on File) Date Activated Date Inactivated Comments 08/20/2018 12:07 PM 08/22/2018 9:04 PM Care Teams Power Lineman Technician Relationship Specialty Start Date End Date Marshall Edouard, PCP - General Internal Medicine 07/11/18
--- OUTSIDE RECORDS SUMMARY | 2024-08-25 07:48 | XMS_ITS | Clinical Summary ---
Author Organization [facility] Address [address] [place] [address] Care Team Providers Care Dry Cell And Battery Assembler Name Role Phone Marshall Edouard DO Primary Care Provider +1- [phone] Mago Benjamin MD Unavailable [phone] Allergies No known active allergies Medications tamsulosin [...] place to sleep or slept in a fpc (including now)? 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 Medical Devices Implanted Type Area Bulk Picker Device Identifier Shelf Expiration Date Model / Serial / Lot Graft Duragen Matrix 1 X 1 - [id number] Implanted:Qty : 1 on 07/11/2022 by George Ashley MD at [facility] Dura N/A: Spine Lumbar [employer] [id number] / / Agent Hemostatic Thrombin Sterile Kit Matrix Surgiflo 8ml - [id number] Implanted:Qty : 1 on 07/11/2022 by George Ashley MD at [facility] Sealant [employer] 10/12/2023 [id number] / / [id number] Body, Top Loading Implanted:Qty : 8 on 07/11/2022 by George Ashley MD at [facility] Spine Components N/A: Spine Lumbar ORTHOFIX 36-2100 / / Set Screw Implanted:Qty : 8 on 07/11/2022 by George Ashley MD at [facility] Spine Components N/A: Spine Lumbar ORTHOFIX 36-2000 / / 6.5x50mm Screw Implanted:Qty : 6 on 07/11/2022 by George Ashley MD at [facility] Spine Components N/A: Spine Lumbar ORTHOFIX 44-5650 / / 6.5x55mm Screw Implanted:Qty : 2 on 07/11/2022 by George Ashley MD at [facility] Spine Components N/A: Spine Lumbar ORTHOFIX 44-5655 / / 110mm Billy Implanted:Qty : 2 on 07/11/2022 by George Ashley MD at [facility] Spine Components N/A: Spine Lumbar ORTHOFIX 52-6110 / / Insurance [facility] Advance Directives * Full Code (Latest Code Status on File) Date Activated Date Inactivated Comments 07/18/2022 3:04 PM * Full Code Date Activated Date Inactivated Comments 07/11/2022 7:44 PM 07/17/2022 6:26 PM Care Teams Dry Cell And Battery Assembler Relationship Specialty Start Date End Date Marshall Edouard DO [facility] [address] [place] [id number] PCP - General INTERNAL MEDICINE 07/05/22 Mago Benjamin MD [address], [address] [place] [address] PULMONARY DISEASE 07/05/22
--- NOTE | 2024-08-25 08:30 | EST_ITS ---
Patient Info Name: Nikko Hassan Age: 84 years : 1940 Gender: Male Ht: 66 in Wt: 240 lbs BSA: 2.30 m2 HR: 63 bpm BP: 152 / 84 mmHg Exam Date: 08/25/2024 9:38 AM Exam Location: Echo Lab Patient Status: Outpatient Admit Date: 08/25/2024 Staff Ordering Physician: Michael Phillips DO Attending Provider: Michael Phillips DO Exercise Technologist: stephanie marie Exercise Physician: Michael Phillips DO Exam Type: CA stress tatyana w NM Study Info Indications Z01.810 - Encounter for preprocedural cardiovascular examination A regadenoson stress test was performed. Summary 1. 1. Negative lexiscan stress test for ischemic ST changes by ECG criteria. 2. 2. Baseline hypertension. 3. 3. Nuclear scan to follow and will be reported separately. Please correlate with it. 4. 4. Patient informed of the above results. Protocol: Lexiscan Stress ECG Details Stage: REST Duration (min): 1 min : 8 sec HR (bpm): 62 SBP (mmHg): 152 DBP (mmHg): 84 Stage: REST Duration (min): 4 min : 58 sec HR (bpm): 71 SBP (mmHg): 152 DBP (mmHg): 84 Stage: STAGE 1 Duration (min): 0 min : 59 sec HR (bpm): 77 SBP (mmHg): 164 DBP (mmHg): 92 Stage: RECOVERY Duration (min): 1 min : 0 sec HR (bpm): 85 SBP (mmHg): 164 DBP (mmHg): 92 Stage: RECOVERY Duration (min): 2 min : 0 sec HR (bpm): 80 SBP (mmHg): 164 DBP (mmHg): 92 Stage: RECOVERY Duration (min): 3 min : 0 sec HR (bpm): 79 SBP (mmHg): 164 DBP (mmHg): 92 Stage: RECOVERY Duration (min): 3 min : 14 sec HR (bpm): 80 SBP (mmHg): 180 DBP (mmHg): 87 Rest HR: 71 bpm Peak HR: 85 bpm Rest Sys BP: 152 mmHg Peak Sys BP: 180 mmHg Max Pred HR: 138 bpm % Max Pred HR: 62 % Target HR: 117 bpm Max RPP: 15,300 bpm*mmHg Termination Reason: Completed protocol Cardiac Symptoms: Shortness of breath Total Time: 1 min : 0 sec Rest Gore BP: 84 mmHg Peak Gore BP: 87 mmHg Total Dose: 0.4 mg Resting ECG Sinus rhythm. Stress ECG No ST changes. Arrhythmias None. Report Signatures
== END 2024-08-25 07:44 | disposition home or self-care (01) ==
PROVIDERS: PCP Nurse Practitioner; Visit Provider Internal Medicine Cardiovascular Disease
DX: Z01.810 Encounter for preprocedural cardiovascular examination (principal); I10 Essential (primary) hypertension
CPT/HCPCS: 78452; 93017; A9502; J2785

== ENCOUNTER 2024-09-11 01:53 | Day surgery (SDC) | payer MEDICARE, SELFPAY ==
--- NOTE | 2024-08-21 09:52 | PC.NURSE ---
Report to the Outpatient Waiting Room, entrance under the green pavilion located off [facility], at time 6 AM on date __09/11/24 . Planned Procedure Time: __7:30 AM .? Time changes happen often and if your time is changed the preop area will call you the afternoon before. - You and your visitor will be asked to self-screen and do not enter if you have any COVID symptoms. Please call surgeon if you need to reschedule. - A mask is optional within the hospital at this time. Patients may have clear liquids (water, carbonated beverages, clear teas, apple juice) until 3 hours prior to surgery ( 4:30 AM) with a maximum of 20 ounces. - No food from midnight until time of surgery and no smoking, or chewing tobacco (or any form of nicotine). No chewing gum, candy or mints. Take only the following medications with a SIP of water on the morning of surgery: NONE DO NOT STOP ANY OF YOUR OTHER PRESCRIPTION MEDICATIONS PRIOR TO SURGERY EXCEPT THE FOLLOWING Hold all vitamins and supplements for 3 days per anesthesiologist. Medications to discontinue per physician ASPIRIN HOLD 7 DAYS PRE OP PER DR SNOW Date to take last dose__09/03/24 MAY TAKE TYLENOL IF NEEDED FOR PAIN Please no make-up, nail pashto, hairspray, perfume, deodorant, or body powder the day of surgery.? No jewelry (including any body piercings) or valuables the day of surgery, leave them at home.? Please take a shower or bath the night before, or the morning of, surgery with an antibacterial soap.? Wear comfortable, loose fitting clothing.? Children are encouraged to wear pajamas. - Jewelry must be removed prior to entering the operating room.? Rings and piercings that are not removed may be cut off. - The hospital will not accept responsibility for valuables.? - Please leave all valuables, including medications, at home the day of surgery. If you are going home after surgery, a licensed class c truck driver must drive you home.? - NO public transportation without another adult if you receive anesthesia. - We recommend that an adult stay with you for 24 hours following discharge. - We also recommend that you do not drive, make important decision, drink alcoholic beverages, or take any drugs that were not prescribed by your health care provider for at least 24 hours after your discharge time. For Pediatric surgeries, we recommend two adults accompany the child home. Follow any additional instructions given to you from your surgeon. VERBAL AND WRITTEN instructions given to _PATIENT__AND DAUGHTER and asked if any additional questions and then verbalized understanding. Patient advised to call surgeon office or pre surgery nurse liaison [phone] if any additional questions.
[2024-08-21 09:59] VITALS: BMI 35.8
[2024-08-21 10:44] VITALS: BP 145/73; PULSE 71; RESP 18; TEMP 36.8; O2SAT 97
--- NOTE | 2024-09-10 07:24 | PM.IMHP ---
H&P: HPI History of Present Illness Date/Time: 09/10/24 07:24 Chief Complaint: Bilateral knee DJD Narrative: 84-year-old male who presents today for a right total knee arthroplasty and cortisone injection left knee. Patient has been having symptoms in his knees for years. His symptoms have been progressively getting worse over last year. He has had hyaluronic acid injections in the past. He had cortisone injections in late last year. Injections in March of last year gave him minimal improvement of his symptoms. Patient is still relatively active and healthy. He is having severe symptoms on a daily basis and feels he would rather proceed with total knee arthroplasty at this point rather than continue nonsurgical treatment Review of Systems Review of Systems: All systems reviewed & are unremarkable except as noted in HPI and below PMFSH Past Medical History Medical History Lumbar stenosis with neurogenic claudication Paresthesia of both lower extremities BPH (benign prostatic hyperplasia) Hypercholesterolemia Essential hypertension Chronic left shoulder pain Elevated serum creatinine Leukocytosis Surgical History Surgical History History of lumbar fusion Family History Family History Mother Hypertension Sibling Hypertension Family history of malignant neoplasm Social History Social History (Updated 08/27/24 @ 10:31 by Anjelica Perez CMA) Social History: Caffeine-Coffee/Soda Smoking status: Never smoker Second hand tobacco smoke exposure: No Additional smoking assessment comments: DENIES ANY FORM OF TOBACCO USE Alcohol intake: never Alcohol use details: none Substance use: never Do You Feel Safe in your Home?: Yes Lack of Transportation: No Lack of Food: Never True Current Housing: I Have Housing Concerned About Future Housing: No Difficulty Paying Gas/Electric Bills: No Difficulty Paying for Meds: No Currently Unemployed: No Education: High School Diploma/GED Difficulty w/ Childcare or Family Care: No Living arrangements: alone Spiritual care concerns: No Meds Home Medications and Allergies Home Medications ?Medication ?Instructions ?Recorded ?Confirmed ?Type tamsulosin 0.4 mg capsule (Flomax) 0.4 mg PO DAILY 04/02/19 08/27/24 History aspirin 81 mg tablet,delayed 81 mg PO DAILY 03/10/20 08/27/24 History release (Adult Low Dose Aspirin) atorvastatin 10 mg tablet See Rx Instructions .Route 06/02/24 08/27/24 Rx .COMPLEX #100 tabs acetaminophen 500 mg tablet 1,000 mg PO Q6H PRN pain 08/21/24 08/27/24 History (Acetaminophen Pain Relief) psyllium husk 0.52 gram capsule 0.52 g PO PRN CONSTIPATION 08/21/24 08/27/24 History (Daily Fiber) lisinopril 30 mg tablet See Rx Instructions .Route 08/25/24 08/27/24 Rx .COMPLEX #100 tabs Allergies Allergy/AdvReac Type Severity Reaction Status Date / Time No Known Allergies Allergy Verified 08/27/24 09:14 Exam Narrative: 84-year-old male he is 5 ft 9 242 lb BMI is 35.7 and he is alert and oriented. Right knee range of motion is from 15-110 degrees. Mild effusion. Normal stability in the knee. Normal quad strength. Hip range of motion is full without discomfort, negative Stinchfield maneuver. 2+ dorsalis pedis and posterior tibial artery pulse palpable. There is no edema in either lower extremity. He has mild tenderness over the medial joint line and mild pain with patellofemoral grind. Resp: Auscultation: clear to auscultation bilaterally Cardio: Rate: regular rate Rhythm: regular rhythm Assessment and Plan Assessment and plan (1) Primary localized osteoarthritis of both knees: Code(s): M17.0 - Bilateral primary osteoarthritis of knee Status: Acute Assessment and Plan: 84-year-old male who has advanced medial compartment osteoarthritis the right knee. He also has moderate medial compartment osteoarthritis in the left. He has not had any improvement from nonsurgical treatment with regard to the right knee. He is having symptoms of pain on a daily basis. He would like proceed with total knee arthroplasty at this. Surgical procedures well as the risks and complications were discussed in detail all questions were answered and we will proceed. Patient will see his primary care doctor for pre-surgical clearance. He has seen cardiology and underwent stress test which showed no abnormalities. He was cleared cardiac standpoint. Patient will stop his baby aspirin 1 week prior surgery. Patient's nasal swab was negative. Hemoglobin 13.6 and platelets 221. Chem panel was all within normal limits creatinine 1.13.
--- OUTSIDE RECORDS SUMMARY | 2024-09-11 01:56 | XMS_ITS | Referral Summary ---
Author Organization [facility] [address] [place] [address] [place] [address] Care Team Providers Care Peoplesoft Hr Developer Name Role Phone Marshall Edouard DO Primary Care Provider +1- [phone] Allergies No known active allergies Medications atorvastatin [...] (08/12/2018): Added automatically from request for surgery [id number] Biceps tendinitis of left upper extremity 2018 Overview (08/12/2018): Added automatically from request for surgery [id number] Social History Tobacco Use Types Packs/Day Years Used Date Smoking Tobacco: Never Smokeless Tobacco: Never Alcohol Use Standard Drinks/Week Comments Not Currently 0 (1 standard drink = 0.6 oz pur e alcohol) PHQ-2 Answer Date Recorded PHQ-2 Score 0 01/03/2019 Sex and Gender Information Value Date Recorded Sex Assigned at Not on file 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 Gender Identity Not on file Sexual [...] on file Medical Devices Implanted Type Area Electronics Instructor Device Identifier Shelf Expiration Date Model / Serial / Lot Exactech 320-20-00 Reverse Torque Define Shoulder Kit Screw - [id number] - [id number] Implanted:Qty: 1 on 08/20/2018 by Aric Vang MD at [facility] Left: Shoulder Exactech 07/08/2023 320-20-00 / [id number] / Exactech 320-15-05 Equinoxe Lock Reverse Shoulder Glenosphere Screw Bone - [id number] - [id number] Implanted:Qty: 1 on 08/20/2018 by Aric Vang MD at [facility] Left: Shoulder Exactech 04/09/2023 320-15-05 / [id number] / Exactech 320-15-03 Equinoxe Augment Posterior Glenoid Shoulder 8d Plate Bone - [id number] - [id number] Implanted:Qty: 1 on 08/20/2018 by Aric Vang MD at [facility] Left: Shoulder Exactech 11/12/2027 320-15-03 / [id number] / Exactech 320-20-38 Equinoxe 4.5mm 38mm Kit Compression Lock Cap Reverse Shoulder - [id number] - [id number] Implanted:Qty: 1 on 08/20/2018 by Aric Vang MD at [facility] Left: Shoulder Exactech 09/06/2022 320-20-38 / [id number] / Exactech 320-01-38 38mm Glenosphere Reverse Shoulder Component Glenoid - [id number] - [id number] Implanted:Qty: 1 on 08/20/2018 by Aric Vang MD at [facility] Left: Shoulder Exactech 07/03/2028 320-01-38 / [id number] / Exactech 320-20-34 Equinoxe 4.5mm 34mm Kit Compression Lock Cap Reverse Shoulder - [id number] - [id number] Implanted:Qty: 1 on 08/20/2018 by Aric Vang MD at [facility] Left: Shoulder Exactech 06/14/2023 320-20-34 / [id number] / Exactech 300-01-11 Equinoxe 11mm Press Fit Primary Shoulder Stem Humeral - [id number] - [id number] Implanted:Qty: 1 on 08/20/2018 by Aric Vang MD at [facility] Left: Humerus Exactech 12/20/2027 300-01-11 / [id number] / Exactech 320-10-00 Equinoxe Reverse Shoulder +0mm Tray Humeral Adapter - [id number] - [id number] Implanted:Qty: 1 on 08/20/2018 by Aric Vang MD at [facility] Left: Humerus Exactech 07/21/2028 320-10-00 / [id number] / Exactech 320-38-00 Equinoxe 38mm Reverse Shoulder +0mm Liner Humeral - [id number] - [id number] Implanted:Qty: 1 on 08/20/2018 by Aric Vang MD at [facility] Left: Shoulder Exactech 06/30/2023 320-38-00 / [id number] / [facility] R HMO REF R HMO REF Advance Directives For more information, please contact: [phone] * Full Code (Latest Code Status on File) Date Activated Date Inactivated Comments 08/20/2018 12:07 PM 08/22/2018 9:04 PM Care Teams Peoplesoft Hr Developer Relationship Specialty Start Date End Date Marshall Edouard DO PCP - General Internal Medicine 07/11/18
--- OUTSIDE RECORDS SUMMARY | 2024-09-11 01:56 | XMS_ITS | Clinical Summary ---
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 Gender Identity Not on file Sexual Orientation [...] on file Medical Devices Implanted Type Area Oracle Soa Consultant Device Identifier Shelf Expiration Date Model / Serial / Lot Exactech 320-20- Reverse Torque Define Shoulder Kit Screw - [id number] - [id number] Implanted:Qty: 1 on 08/20/2018 by Aric Vang MD at [facility] Left: Shoulder Exactech 07/08/2023 320-20-00 / [id number] / Exactech 320-15-05 Equinoxe Lock Reverse Shoulder Glenosphere Screw Bone - [id number] - [id number] Implanted:Qty: 1 on 08/20/2018 by Aric Vang MD at [facility] Left: Shoulder Exactech 04/09/2023 320-15-05 / [id number] / Exactech 320-15-03 Equinoxe Augment Posterior Glenoid Shoulder 8d Plate Bone - [id number] - [id number] Implanted:Qty: 1 on 08/20/2018 by Aric Vang MD at [facility] Left: Shoulder Exactech 11/12/2027 320-15-03 / [id number] / Exactech 320-20-38 Equinoxe 4.5mm 38mm Kit Compression Lock Cap Reverse Shoulder - [id number] - [id number] Implanted:Qty: 1 on 08/20/2018 by Aric Vang MD at [facility] Left: Shoulder Exactech 09/06/2022 320-20-38 / [id number] / Exactech 320-01-38 38mm Glenosphere Reverse Shoulder Component Glenoid - [id number] - [id number] Implanted:Qty: 1 on 08/20/2018 by Aric Vang MD at [facility] Left: Shoulder Exactech 07/03/2028 320-01-38 / [id number] / Exactech 320-20-34 Equinoxe 4.5mm 34mm Kit Compression Lock Cap Reverse Shoulder - [id number] - [id number] Implanted:Qty: 1 on 08/20/2018 by Aric Vang MD at [facility] Left: Shoulder Exactech 06/14/2023 320-20-34 / [id number] / Exactech 300-01-11 Equinoxe 11mm Press Fit Primary Shoulder Stem Humeral - [id number] - [id number] Implanted:Qty: 1 on 08/20/2018 by Aric Vang MD at [facility] Left: Humerus Exactech 12/20/2027 300-01-11 / [id number] / Exactech 320-10-00 Equinoxe Reverse Shoulder +0mm Tray Humeral Adapter - [id number] - [id number] Implanted:Qty: 1 on 08/20/2018 by Aric Vang MD at [facility] Left: Humerus Exactech 07/21/2028 320-10-00 / [id number] / Exactech 320-38-00 Equinoxe 38mm Reverse Shoulder +0mm Liner Humeral - [id number] - [id number] Implanted:Qty: 1 on 08/20/2018 by Aric Vang MD at [facility] Left: Shoulder Exactech 06/30/2023 320-38-00 / [id number] / Insurance R HMO REF Member Subscriber Plan / Payer (Ef fective 2018-Present) Name:Nikko Hassan Relation to Subscriber:Self Name:Nikko Hassan Payer ID:[id number] (NAIC) Type:[facility] Address: [place] [id number] HMO REF Member Subscriber Plan / Payer (Ef fective 2018-Present) Name:Nikko Hassan Relation to Subscriber:Self Name:Nikko Hassan Payer ID:[id number] (NAIC) Type:[facility] Address: [place] [id number] R HMO REF Member Subscriber Plan / Payer (Ef fective 2018-Present) Name:Nikko Hassan Relation to Subscriber:Self Name:Nikko Hassan Payer ID:[id number] (NAIC) Type:[facility] Address: [place] [id number] Advance Directives For more information, please contact: [phone] * Full Code (Latest Code Status on File) Date Activated Date Inactivated Comments 08/20/2018 12:07 PM 08/22/2018 9:04 PM Care Teams Csr Retail Relationship Specialty Start Date End Date Marshall Edouard, PCP - General Internal Medicine 07/11/18
--- OUTSIDE RECORDS SUMMARY | 2024-09-11 01:56 | XMS_ITS | Clinical Summary ---
Author Organization [facility] Address [address] [place] [address] Care Team Providers Care Mold Worker Name Role Phone Marshall Edouard DO Primary Care Provider [phone] Mago Benjamin MD Unavailable [phone] Allergies No known active allergies Medications tamsulosin [...] place to sleep or slept in a penitentiary (including now)? 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..] Patient-Stated? Author Outpatient Goal Lifestyle No Waqas Sharma, RN Note: Make a plan for discharge according to therapy recs. Medical Devices Implanted Type Area Spring Former Machine Device Identifier Shelf Expiration Date Model / Serial / Lot Graft Duragen Matrix 1 X 1 - [id number] Implanted:Qty : 1 on 07/11/2022 by George Ashley MD at [facility] Dura N/A: Spine Lumbar [employer] [id number] / / Agent Hemostatic Thrombin Sterile Kit Matrix Surgiflo 8ml - [id number] Implanted:Qty : 1 on 07/11/2022 by George Ashley MD at [facility] Sealant [employer] 10/12/2023 [id number] / / [id number] Body, Top Loading Implanted:Qty : 8 on 07/11/2022 by George Ashley MD at [facility] Spine Components N/A: Spine Lumbar ORTHOFIX 36-2100 / / Set Screw Implanted:Qty : 8 on 07/11/2022 by George Ashley MD at [facility] Spine Components N/A: Spine Lumbar ORTHOFIX 36-2000 / / 6.5x50mm Screw Implanted:Qty : 6 on 07/11/2022 by George Ashley MD at [facility] Spine Components N/A: Spine Lumbar ORTHOFIX 44-5650 / / 6.5x55mm Screw Implanted:Qty : 2 on 07/11/2022 by George Ashley MD at [facility] Spine Components N/A: Spine Lumbar ORTHOFIX 44-5655 / / 110mm Billy Implanted:Qty : 2 on 07/11/2022 by George Ashley MD at [facility] Spine Components N/A: Spine Lumbar ORTHOFIX 52-6110 / / Insurance [facility] Advance Directives * Full Code (Latest Code Status on File) Date Activated Date Inactivated Comments 07/18/2022 3:04 PM * Full Code Date Activated Date Inactivated Comments 07/11/2022 7:44 PM 07/17/2022 6:26 PM Care Teams Mold Worker Relationship Specialty Start Date End Date Marshall Edouard DO [address] [facility] [address] [place] [address] PCP - General INTERNAL MEDICINE 07/05/22 Mago Benjamin MD [address] [place] [address] PULMONARY DISEASE 07/05/22
[2024-09-11 06:15] VITALS: BP 163/72; PULSE 71; RESP 16; TEMP 36.8; O2SAT 97
--- NOTE | 2024-09-11 08:45 | WPDHPUPDATE1 ---
History and Physical Update Update Date/Time: 09/11/24 08:45 Patient fell last night onto his knees and has 1.5 inch abrasion over lateral retinaulum and 1 inch abrasion over inferior pole patella right knee therefore his surgery had to be cancelled..
== END 2024-09-11 07:00 | disposition home or self-care (01) ==
PROVIDERS: PCP Nurse Practitioner; Visit Provider Orthopaedic Surgery
PROC: (CPT 27447; principal; 2024-10-23 11:30)
DX: M17.0 Bilateral primary osteoarthritis of knee (principal)
CPT/HCPCS: 99199; J0171; J2270; J2795

== ENCOUNTER 2024-10-15 08:35 | Outpatient (CLI) | payer MEDICARE, SELFPAY ==
--- OUTSIDE RECORDS SUMMARY | 2024-10-15 08:41 | XMS_ITS | Clinical Summary ---
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 Gender Identity Not on file Sexual Orientation [...] 3:17 PM CDT Height 177.8 cm (5' 10) 01/28/2020 3:17 PM CDT Body Mass Index 36.3 01/28/2020 3:17 PM CDT Plan of Treatment Not on file Medical Devices Implanted Type Area Integrated Circuits Inspector Device Identifier Shelf Expiration Date Model / Serial / Lot Exactech 320-20- Reverse Torque Define Shoulder Kit Screw - [id number] - [id number] Implanted:Qty: 1 on 08/20/2018 by Aric Vang MD at [facility] Left: Shoulder Exactech 07/08/2023 320-20-00 / [id number] / Exactech 320-15-05 Equinoxe Lock Reverse Shoulder Glenosphere Screw Bone - [id number] - [id number] Implanted:Qty: 1 on 08/20/2018 by Aric Vang MD at [facility] Left: Shoulder Exactech 04/09/2023 320-15-05 / [id number] / Exactech 320-15-03 Equinoxe Augment Posterior Glenoid Shoulder 8d Plate Bone - [id number] - [id number] Implanted:Qty: 1 on 08/20/2018 by Aric Vang MD at [facility] Left: Shoulder Exactech 11/12/2027 320-15-03 / [id number] / Exactech 320-20-38 Equinoxe 4.5mm 38mm Kit Compression Lock Cap Reverse Shoulder - [id number] - [id number] Implanted:Qty: 1 on 08/20/2018 by Aric Vang MD at [facility] Left: Shoulder Exactech 09/06/2022 320-20-38 / [id number] / Exactech 320-01-38 38mm Glenosphere Reverse Shoulder Component Glenoid - [id number] - [id number] Implanted:Qty: 1 on 08/20/2018 by Aric Vang MD at [facility] Left: Shoulder Exactech 07/03/2028 320-01-38 / [id number] / Exactech 320-20-34 Equinoxe 4.5mm 34mm Kit Compression Lock Cap Reverse Shoulder - [id number] - [id number] Implanted:Qty: 1 on 08/20/2018 by Aric Vang MD at [facility] Left: Shoulder Exactech 06/14/2023 320-20-34 / [id number] / Exactech 300-01-11 Equinoxe 11mm Press Fit Primary Shoulder Stem Humeral - [id number] - [id number] Implanted:Qty: 1 on 08/20/2018 by Aric Vang MD at [facility] Left: Humerus Exactech 12/20/2027 300-01-11 / [id number] / Exactech 320-10-00 Equinoxe Reverse Shoulder +0mm Tray Humeral Adapter - [id number] - [id number] Implanted:Qty: 1 on 08/20/2018 by Aric Vang MD at [facility] Left: Humerus Exactech 07/21/2028 320-10-00 / [id number] / Exactech 320-38-00 Equinoxe 38mm Reverse Shoulder +0mm Liner Humeral - [id number] - [id number] Implanted:Qty: 1 on 08/20/2018 by Aric Vang MD at [facility] Left: Shoulder Exactech 06/30/2023 320-38-00 / [id number] / Insurance R HMO REF Member Subscriber Plan / Payer (Ef fective 2018-Present) Name:Nikko Hassan Relation to Subscriber:Self Name:Nikko Hassan Payer ID:[id number] (NAIC) Type:[facility] Address: [place] [id number] HMO REF Member Subscriber Plan / Payer (Ef fective 2018-Present) Name:Nikko Hassan Relation to Subscriber:Self Name:Nikko Hassan Payer ID:[id number] (NAIC) Type:[facility] Address: [place] [id number] R HMO REF Member Subscriber Plan / Payer (Ef fective 2018-Present) Name:Nikko Hassan Relation to Subscriber:Self Name:Nikko Hassan Payer ID:[id number] (NAIC) Type:[facility] Address: [place] [phone] Advance Directives For more information, please contact: [phone] * Full Code (Latest Code Status on File) Date Activated Date Inactivated Comments 08/20/2018 12:07 PM 08/22/2018 9:04 PM Care Teams Lock And Dam Equipment Repairer Relationship Specialty Start Date End Date Marshall Edouard, PCP - General Internal Medicine 07/11/18
--- OUTSIDE RECORDS SUMMARY | 2024-10-15 08:42 | XMS_ITS | Referral Summary ---
Author Organization [facility] [address] [place] [address] [place] [id number] Care Team Providers Care Retail And Restaurant Name Role Phone Marshall Edouard DO Primary Care Provider +1- [phone] Allergies No known active allergies Medications atorvastatin [...] (08/12/2018): Added automatically from request for surgery [id number] Biceps tendinitis of left upper extremity 2018 Overview (08/12/2018): Added automatically from request for surgery [id number] Social History Tobacco Use Types Packs/Day Years Used Date Smoking Tobacco: Never Smokeless Tobacco: Never Alcohol Use Standard Drinks/Week Comments Not Currently 0 (1 standard drink = 0.6 oz pur e alcohol) PHQ-2 Answer Date Recorded PHQ-2 Score 0 01/03/2019 Sex and Gender Information Value Date Recorded Sex Assigned at Not on file 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 Gender Identity Not on file Sexual Orientation [...] on file Medical Devices Implanted Type Area Healthcare Science Specialist Device Identifier Shelf Expiration Date Model / Serial / Lot Exactech 320-20-00 Reverse Torque Define Shoulder Kit Screw - [id number] - [id number] Implanted:Qty: 1 on 08/20/2018 by Aric Vang MD at [facility] Left: Shoulder Exactech 07/08/2023 320-20-00 / [id number] / Exactech 320-15-05 Equinoxe Lock Reverse Shoulder Glenosphere Screw Bone - [id number] - [id number] Implanted:Qty: 1 on 08/20/2018 by Aric Vang MD at [facility] Left: Shoulder Exactech 04/09/2023 320-15-05 / [id number] / Exactech 320-15-03 Equinoxe Augment Posterior Glenoid Shoulder 8d Plate Bone - [id number] - [id number] Implanted:Qty: 1 on 08/20/2018 by Aric Vang MD at [facility] Left: Shoulder Exactech 11/12/2027 320-15-03 / [id number] / Exactech 320-20-38 Equinoxe 4.5mm 38mm Kit Compression Lock Cap Reverse Shoulder - [id number] - [id number] Implanted:Qty: 1 on 08/20/2018 by Aric Vang MD at [facility] Left: Shoulder Exactech 09/06/2022 320-20-38 / [id number] / Exactech 320-01-38 38mm Glenosphere Reverse Shoulder Component Glenoid - [id number] - [id number] Implanted:Qty: 1 on 08/20/2018 by Aric Vang MD at [facility] Left: Shoulder Exactech 07/03/2028 320-01-38 / [id number] / Exactech 320-20-34 Equinoxe 4.5mm 34mm Kit Compression Lock Cap Reverse Shoulder - [id number] - [id number] Implanted:Qty: 1 on 08/20/2018 by Aric Vang MD at [facility] Left: Shoulder Exactech 06/14/2023 320-20-34 / [id number] / Exactech 300-01-11 Equinoxe 11mm Press Fit Primary Shoulder Stem Humeral - [id number] - [id number] Implanted:Qty: 1 on 08/20/2018 by Aric Vang MD at [facility] Left: Humerus Exactech 12/20/2027 300-01-11 / [id number] / Exactech 320-10-00 Equinoxe Reverse Shoulder +0mm Tray Humeral Adapter - [id number] - [id number] Implanted:Qty: 1 on 08/20/2018 by Aric Vang MD at [facility] Left: Humerus Exactech 07/21/2028 320-10-00 / [id number] / Exactech 320-38-00 Equinoxe 38mm Reverse Shoulder +0mm Liner Humeral - [id number] - [id number] Implanted:Qty: 1 on 08/20/2018 by Aric Vang MD at [facility] Left: Shoulder Exactech 06/30/2023 320-38-00 / [id number] / [facility] RE[facility] R HMO REF R HMO REF Advance Directives For more information, please contact: [phone] * Full Code (Latest Code Status on File) Date Activated Date Inactivated Comments 08/20/2018 12:07 PM 08/22/2018 9:04 PM Care Teams Retail And Restaurant Relationship Specialty Start Date End Date Marshall Edouard DO PCP - General Internal Medicine 07/11/18
[2024-10-15 09:23] LABS: Basophils Absolute Auto 0.1 K/mm3 (0.0-0.1); Basophils Percent Auto 0.5 % (0.2-1.2); Eosinophils Absolute Auto 0.2 K/mm3 (0-0.3); Hematocrit 43.1 % (42.0-52.0); Hemoglobin 14.1 g/dL (14.0-18.0); Immature Granulocyte Absolute 0.02 K/mm3 (0.00-0.031); Immature Granulocyte Percent A 0.2 % (0-0.5); Lymphocytes Percent Auto 26.5 % (18.3-44.2); Mean Corpuscular HGB Conc 32.7 g/dl (32-36); Mean Corpuscular Hemoglobin 29.9 pg (26-34); Mean Corpuscular Volume 91.5 fl (80-100); Mean Platelet Volume 10.6 fl (7.4-10.4); Monocytes Absolute Auto 0.9 K/mm3 (0.1-0.6); Monocytes Percent Auto 9.3 % (2.6-8.5); Neutrophils Absolute Auto 5.8 K/mm3 (1.3-6.7); Neutrophils Percent Auto 61.5 % (45.5-73.1); Platelet Count Result 209 k/mm3 (150-375); Red Blood Count 4.71 M/mm3 (4.6-6.20); Red Cell Distribution Width 14.3 % (11.5-14.5); White Blood Count 9.4 K/mm3 (4.5-10.0)
[2024-10-15 09:41] LABS: Anion Gap 5 mmol/L (4-12); Blood Urea Nitrogen 18 mg/dL (9-20); Calcium 8.9 mg/dL (8.4-10.2); Carbon Dioxide 27 mmol/L (22-30); Chloride 108 mmol/L (98-107); Estimated Glomerular Filt Rate > 60; Glucose 100 mg/dL (65-110); Sodium 140 mmol/L (137-145)
[2024-10-15 11:18] LABS: Urine Cotinine NEGATIVE
== END 2024-10-15 08:36 | disposition home or self-care (01) ==
PROVIDERS: PCP Nurse Practitioner; Visit Provider Orthopaedic Surgery
DX: Z01.812 Encounter for preprocedural laboratory examination (principal); M17.0 Bilateral primary osteoarthritis of knee
CPT/HCPCS: 80048; 80307; 82040; 85025; 86850; 86900; 86901; 87081; 87181

== ENCOUNTER 2024-10-23 03:35 | Day surgery (SDC) | payer MEDICARE, SELFPAY ==
--- NOTE | 2024-10-08 09:27 | PC.NURSE ---
Report to the Outpatient Waiting Room, entrance under the green pavilion located off [facility], at time 9:30 AM on date _10/23/24 . Planned Procedure Time: __11:30 AM .? Time changes happen often and if your time is changed the preop area will call you the afternoon before. - You and your visitor will be asked to self-screen and do not enter if you have any COVID symptoms. Please call surgeon if you need to reschedule. - A mask is optional within the hospital at this time. Patients may have clear liquids (water, carbonated beverages, clear teas, apple juice) until 3 hours prior to surgery ( 8:30 AM) with a maximum of 20 ounces. - No food from midnight until time of surgery and no smoking, or chewing tobacco (or any form of nicotine). No chewing gum, candy or mints. Take only the following medications with a SIP of water on the morning of surgery: ___NONE DO NOT STOP ANY OF YOUR OTHER PRESCRIPTION MEDICATIONS PRIOR TO SURGERY EXCEPT THE FOLLOWING Hold all vitamins and supplements for 3 days per anesthesiologist. Medications to discontinue per physician ____HOLD ASPIRIN 7 DAYS PRE OP PER DR SNOW Date to take last dose___10/15/24 MAY TAKE TYLENOL IF NEEDED FOR PAIN Please no make-up, nail sri lankan, hairspray, perfume, deodorant, or body powder the day of surgery.? No jewelry (including any body piercings) or valuables the day of surgery, leave them at home.? Please take a shower or bath the night before, or the morning of, surgery with an antibacterial soap.? Wear comfortable, loose fitting clothing.? Children are encouraged to wear pajamas. - Jewelry must be removed prior to entering the operating room.? Rings and piercings that are not removed may be cut off. - The hospital will not accept responsibility for valuables.? - Please leave all valuables, including medications, at home the day of surgery. If you are going home after surgery, a licensed local company tanker driver must drive you home.? - NO public transportation without another adult if you receive anesthesia. - We recommend that an adult stay with you for 24 hours following discharge. - We also recommend that you do not drive, make important decision, drink alcoholic beverages, or take any drugs that were not prescribed by your health care provider for at least 24 hours after your discharge time. For Pediatric surgeries, we recommend two adults accompany the child home. Follow any additional instructions given to you from your surgeon. Telephone instructions given to __PATIENT AND DAUGHTER AMARA and asked if any additional questions and then verbalized understanding. Patient advised to call surgeon office or pre surgery nurse liaison [phone] if any additional questions.
--- NOTE | 2024-10-08 09:40 | PC.NURSE ---
PT STATES FELL 09/11/24 [facility] SURGERY CX . NO CHANGE IN HEALTH HX SINCE LAST INTERVIEW ON 08/21/24
[2024-10-08 09:42] VITALS: BMI 35.8
--- NOTE | 2024-10-22 07:25 | P.HP_ITS ---
H&P: [facility] History of Present Illness Date/Time: 10/22/24 07:25 Chief Complaint: Bilateral knee DJD Narrative: 84-year-old male who is here for a right total arthroplasty with cortisone injection left knee. He has been having symptoms in both of his knees for years. Pain and symptoms have progressively worsened. He has had cortisone injections as well as viscosupplementation injections in the past. None for at least 5 her 6 months. He is had minimal improvement from the injections. Patient feels that his knees are affecting his daily lifestyle and limiting his activities. He would like to proceed with total knee arthroplasty on the right knee at this point. Review of Systems Review of Systems: All systems reviewed & are unremarkable except as noted in HPI and below PMFSH Past Medical History Medical History Lumbar stenosis with neurogenic claudication Paresthesia of both lower extremities BPH (benign prostatic hyperplasia) Hypercholesterolemia Essential hypertension Chronic left shoulder pain Elevated serum creatinine Leukocytosis Surgical History Surgical History History of lumbar fusion Family History Family History Mother Hypertension Sibling Hypertension Family history of malignant neoplasm Social History Social History Social History: Caffeine-Coffee/Soda Smoking status: Never smoker Second hand tobacco smoke exposure: No Additional smoking assessment comments: DENIES ANY FORM OF TOBACCO USE Alcohol intake: never Alcohol use details: none Substance use: never Do You Feel Safe in your Home?: Yes Lack of Transportation: No Lack of Food: Never True Current Housing: I Have Housing Concerned About Future Housing: No Difficulty Paying Gas/Electric Bills: No Difficulty Paying for Meds: No Currently Unemployed: No Education: High School Diploma/GED Difficulty w/ Childcare or Family Care: No Living arrangements: with family Spiritual care concerns: No Meds Home Medications and Allergies Home Medications ?Medication ?Instructions ?Recorded ?Confirmed ?Type tamsulosin 0.4 mg capsule (Flomax) 0.4 mg PO DAILY 04/02/19 10/08/24 History aspirin 81 mg tablet,delayed 81 mg PO DAILY 03/10/20 10/08/24 History release (Adult Low Dose Aspirin) atorvastatin 10 mg tablet See Rx Instructions .Route 06/02/24 10/08/24 Rx .COMPLEX #100 tabs acetaminophen 500 mg tablet 1,000 mg PO Q6H PRN pain 08/21/24 10/08/24 History (Acetaminophen Pain Relief) psyllium husk 0.52 gram capsule 0.52 g PO PRN CONSTIPATION 08/21/24 10/08/24 History (Daily Fiber) lisinopril 30 mg tablet See Rx Instructions .Route 08/25/24 10/08/24 Rx .COMPLEX #100 tabs mupirocin 2 % topical ointment 1 applic topical BID #15 grams 10/20/24 Rx Allergies Allergy/AdvReac Type Severity Reaction Status Date / Time No Known Allergies Allergy Verified 10/15/24 08:24 Exam Narrative: 84-year-old male alert pleasant. He is 5 ft 9 to 135 lb BMI is 34 point some. Range of motion right knee is from 15-110 degrees. Mild effusion normal stability in the knee. Normal quad strength. Hip range of motion is full without discomfort to the maneuver Stinchfield maneuver. 2+ dorsalis pedis and posterior tibial artery pulse palpable. No edema in lower extremities. Resp: Auscultation: clear to auscultation bilaterally Cardio: Rate: regular rate Rhythm: regular rhythm Assessment and Plan Assessment and plan (1) Primary localized osteoarthritis of both knees: Code(s): M17.0 - Bilateral primary osteoarthritis of knee Status: Acute Assessment and Plan: 84-year-old male who has severe medial compartment osteoarthritis in both knees. Patient feels a nonsurgical treatment is not giving him satisfactory improvement had would rather undergo total knee arthroplasty on the right knee at this point. Surgical procedures well as risks and complications were discussed in detail all questions were answered and we will proceed. Patient has seen his primary care doctor for pre-surgical clearance. He has seen cardiology and undergone a stress test, this was normal and he has been cleared from cardiology standpoint. Patient's hemoglobin is 14.1 platelets are 209. Chem panel was within normal limits creatinine 1.08. 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
[2024-10-23] VITALS (14 sets, daily range): BP systolic 116–187; BP diastolic 57–89; PULSE 61–80; RESP 15–21; TEMP 35.9–37.1; O2SAT 92–100; BMI 35.9
--- NOTE | ~2024-10-23 | XR_ITS ---
EXAMINATION: [id number] DATE: 10/23/2024 15:01 INDICATION: Postoperative evaluation following right total knee arthroplasty. TECHNIQUE: Anteroposterior and lateral views of the right knee were obtained. COMPARISON: None. FINDINGS: Right total knee arthroplasty without patellar resurfacing appears well seated and in near anatomic a lignment. No fractures identified. Expected postoperative subcutaneous and intra-articular gas. IMPRESSION: 1. Right total knee arthroplasty, negative for postoperative purposes. Reviewed, dictated and finalized at location A.
--- OUTSIDE RECORDS SUMMARY | 2024-10-23 03:37 | XMS_ITS | Clinical Summary ---
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 Gender Identity Not on file Sexual Orientation [...] on file Medical Devices Implanted Type Area Technical Illustrations Map Inker Device Identifier Shelf Expiration Date Model / Serial / Lot Exactech 320-20- Reverse Torque Define Shoulder Kit Screw - [id number] - [id number] Implanted:Qty: 1 on 08/20/2018 by Aric Vang MD at [facility] Left: Shoulder Exactech 07/08/2023 320-20-00 / [id number] / Exactech 320-15-05 Equinoxe Lock Reverse Shoulder Glenosphere Screw Bone - [id number] - [id number] Implanted:Qty: 1 on 08/20/2018 by Aric Vang MD at [facility] Left: Shoulder Exactech 04/09/2023 320-15-05 / [id number] / Exactech 320-15-03 Equinoxe Augment Posterior Glenoid Shoulder 8d Plate Bone - [id number] - [id number] Implanted:Qty: 1 on 08/20/2018 by Aric Vang MD at [facility] Left: Shoulder Exactech 11/12/2027 320-15-03 / [id number] / Exactech 320-20-38 Equinoxe 4.5mm 38mm Kit Compression Lock Cap Reverse Shoulder - [id number] - [id number] Implanted:Qty: 1 on 08/20/2018 by Aric Vang MD at [facility] Left: Shoulder Exactech 09/06/2022 320-20-38 / [id number] / Exactech 320-01-38 38mm Glenosphere Reverse Shoulder Component Glenoid - [id number] - [id number] Implanted:Qty: 1 on 08/20/2018 by Aric Vang MD at [facility] Left: Shoulder Exactech 07/03/2028 320-01-38 / [id number] / Exactech 320-20-34 Equinoxe 4.5mm 34mm Kit Compression Lock Cap Reverse Shoulder - [id number] - [id number] Implanted:Qty: 1 on 08/20/2018 by Aric Vang MD at [facility] Left: Shoulder Exactech 06/14/2023 320-20-34 / [id number] / Exactech 300-01-11 Equinoxe 11mm Press Fit Primary Shoulder Stem Humeral - [id number] - [id number] Implanted:Qty: 1 on 08/20/2018 by Aric Vang MD at [facility] Left: Humerus Exactech 12/20/2027 300-01-11 / [id number] / Exactech 320-10-00 Equinoxe Reverse Shoulder +0mm Tray Humeral Adapter - [id number] - [id number] Implanted:Qty: 1 on 08/20/2018 by Aric Vang MD at [facility] Left: Humerus Exactech 07/21/2028 320-10-00 / [id number] / Exactech 320-38-00 Equinoxe 38mm Reverse Shoulder +0mm Liner Humeral - [id number] - [id number] Implanted:Qty: 1 on 08/20/2018 by Aric Vang MD at [facility] Left: Shoulder Exactech 06/30/2023 320-38-00 / [id number] / Insurance R HMO REF [facility] Address: [place] [id number] HMO REF [facility] MEDIC[facility] Address: [place] [id number] R HMO REF [facility] MEDIC[facility] Address: [place] [phone] Advance Directives For more information, please contact: [phone] * Full Code (Latest Code Status on File) Date Activated Date Inactivated Comments 08/20/2018 12:07 PM 08/22/2018 9:04 PM Care Teams Commissions Specialist Relationship Specialty Start Date End Date Marshall Edouard, PCP - General Internal Medicine 07/11/18
--- OUTSIDE RECORDS SUMMARY | 2024-10-23 03:37 | XMS_ITS | Referral Summary ---
Author Organization [facility] [address] [place] [address] [place] [id number] Care Team Providers Care Casing Flusher Name Role Phone Marshall Edouard DO Primary Care Provider [phone] Allergies No known active allergies Medications atorvastatin [...] (08/12/2018): Added automatically from request for surgery [id number] Biceps tendinitis of left upper extremity 2018 Overview (08/12/2018): Added automatically from request for surgery [id number] Social History Tobacco Use Types Packs/Day Years Used Date Smoking Tobacco: Never Smokeless Tobacco: Never Alcohol Use Standard Drinks/Week Comments Not Currently 0 (1 standard drink = 0.6 oz pur e alcohol) PHQ-2 Answer Date Recorded PHQ-2 Score 0 01/03/2019 Sex and Gender Information Value Date Recorded Sex Assigned at Not on file 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 Gender Identity Not on file Sexual Orientation [...] on file Medical Devices Implanted Type Area Equipment Maintenance Technician Device Identifier Shelf Expiration Date Model / Serial / Lot Exactech 320-20-00 Reverse Torque Define Shoulder Kit Screw - [id number] - [id number] Implanted:Qty: 1 on 08/20/2018 by Aric Vang MD at [facility] Left: Shoulder Exactech 07/08/2023 320-20-00 / [id number] / Exactech 320-15-05 Equinoxe Lock Reverse Shoulder Glenosphere Screw Bone - [id number] - [id number] Implanted:Qty: 1 on 08/20/2018 by Aric Vang MD at [facility] Left: Shoulder Exactech 04/09/2023 320-15-05 / [id number] / Exactech 320-15-03 Equinoxe Augment Posterior Glenoid Shoulder 8d Plate Bone - [id number] - [id number] Implanted:Qty: 1 on 08/20/2018 by Aric Vang MD at [facility] Left: Shoulder Exactech 11/12/2027 320-15-03 / [id number] / Exactech 320-20-38 Equinoxe 4.5mm 38mm Kit Compression Lock Cap Reverse Shoulder - [id number] - [id number] Implanted:Qty: 1 on 08/20/2018 by Aric Vang MD at [facility] Left: Shoulder Exactech 09/06/2022 320-20-38 / [id number] / Exactech 320-01-38 38mm Glenosphere Reverse Shoulder Component Glenoid - [id number] - [id number] Implanted:Qty: 1 on 08/20/2018 by Aric Vang MD at [facility] Left: Shoulder Exactech 07/03/2028 320-01-38 / [id number] / Exactech 320-20-34 Equinoxe 4.5mm 34mm Kit Compression Lock Cap Reverse Shoulder - [id number] - [id number] Implanted:Qty: 1 on 08/20/2018 by Aric Vang MD at [facility] Left: Shoulder Exactech 06/14/2023 320-20-34 / [id number] / Exactech 300-01-11 Equinoxe 11mm Press Fit Primary Shoulder Stem Humeral - [id number] - [id number] Implanted:Qty: 1 on 08/20/2018 by Aric Vang MD at [facility] Left: Humerus Exactech 12/20/2027 300-01-11 / [id number] / Exactech 320-10-00 Equinoxe Reverse Shoulder +0mm Tray Humeral Adapter - [id number] - [id number] Implanted:Qty: 1 on 08/20/2018 by Aric Vang MD at [facility] Left: Humerus Exactech 07/21/2028 320-10-00 / [id number] / Exactech 320-38-00 Equinoxe 38mm Reverse Shoulder +0mm Liner Humeral - [id number] - [id number] Implanted:Qty: 1 on 08/20/2018 by Aric Vang MD at [facility] Left: Shoulder Exactech 06/30/2023 320-38-00 / [id number] / [facility] REF R HMO REF R HMO REF Advance Directives For more information, please contact: [phone] * Full Code (Latest Code Status on File) Date Activated Date Inactivated Comments 08/20/2018 12:07 PM 08/22/2018 9:04 PM Care Teams Casing Flusher Relationship Specialty Start Date End Date Marshall Edouard DO PCP - General Internal Medicine 07/11/18
--- NOTE | 2024-10-23 10:13 | WPDHPUPDATE1 ---
History and Physical Update Update Date/Time: 10/23/24 10:13 History and Physical has been reviewed, including an updated exam of the patient. There are NO changes in the patient's condition. Risks, benefits, and alternatives have been discussed and questions answered. Patient agrees to proceed with procedure.
[2024-10-23] MEDS: LACTATED RINGERS 1,000 ML 30 ML IV CONT ×2 (10:20→14:57)
[2024-10-23] MEDS: TRANEXAMIC ACID 1,000MG/ISO100 1,000 MG/100 ML BAG 200 MG IVPB (10:24)
[2024-10-23] MEDS: ACETAMINOPHEN 500 MG TABLET 1000 MG PO (10:25)
[2024-10-23] MEDS: VANCOMYCIN 1,750 MG/NS 500 ML BAG 250 MG IVPB (10:26)
--- NOTE | 2024-10-23 10:32 | WPDANESEPPF ---
Anes - Initial Pre Proc Eval Procedure: Operation Date: 10/23/24 11:30 Proposed Procedures p Right Total Knee Arthroplasty with Left Knee Cortisone Injection - Guy Joseph MD Date/Time: 10/23/24 10:32 Surgeon: Guy Joseph MD Pre Op Diagnosis: bilateral knee oa Patient Data Age: 84 Gender: M Height: 1.75 m Weight: 110 kg Allergies Allergy/AdvReac Type Severity Reaction Status Date / Time No Known Allergies Allergy Verified 10/23/24 09:47 Home Medications ?Medication ?Instructions ?Recorded ?Confirmed ?Type tamsulosin 0.4 mg capsule (Flomax) 0.4 mg PO DAILY 04/02/19 10/08/24 History aspirin 81 mg tablet,delayed 81 mg PO DAILY 03/10/20 10/08/24 History release (Adult Low Dose Aspirin) atorvastatin 10 mg tablet See Rx Instructions .Route 06/02/24 10/08/24 Rx .COMPLEX #100 tabs acetaminophen 500 mg tablet 1,000 mg PO Q6H PRN pain 08/21/24 10/08/24 History (Acetaminophen Pain Relief) psyllium husk 0.52 gram capsule 0.52 g PO PRN CONSTIPATION 08/21/24 10/08/24 History (Daily Fiber) lisinopril 30 mg tablet See Rx Instructions .Route 08/25/24 10/08/24 Rx .COMPLEX #100 tabs mupirocin 2 % topical ointment 1 applic topical BID #15 grams 10/20/24 Rx Patient hx anesthesia problems: none Family hx anesthesia problems: none Results Review: All pre-operative results and documents have been reviewed as part of the pre-operative evaluation. [facility] Past Medical History Medical History Lumbar stenosis with neurogenic claudication Paresthesia of both lower extremities BPH (benign prostatic hyperplasia) Hypercholesterolemia Essential hypertension Chronic left shoulder pain Elevated serum creatinine Leukocytosis Surgical History Surgical History History of lumbar fusion Family History Family History Mother Hypertension Sibling Hypertension Family history of malignant neoplasm Social History Social History Social History: Caffeine-Coffee/Soda Smoking status: Never smoker Second hand tobacco smoke exposure: No Additional smoking assessment comments: DENIES ANY FORM OF TOBACCO USE Alcohol intake: never Alcohol use details: none Substance use: never Do You Feel Safe in your Home?: Yes Lack of Transportation: No Lack of Food: Never True Current Housing: I Have Housing Concerned About Future Housing: No Difficulty Paying Gas/Electric Bills: No Difficulty Paying for Meds: No Currently Unemployed: No Education: High School Diploma/GED Difficulty w/ Childcare or Family Care: No Living arrangements: alone Spiritual care concerns: No Anes - Eval Final PreProcedure Day of Procedure 10/23/24 10:32 Patient weight: obese Heart: regular rate and rhythm Lungs: decreased breath sounds Airway: Mallampati scale class II Neurological: alert and oriented Last oral intake: >/= 8 hours ASA classification: III Emergent: no Anesthetic plan: proceed Anesthesia type and monitoring: general ETT and standard monitoring Results Review: All pre-operative results and documents have been reviewed as part of the pre-operative evaluation. Informed Consent: The patient's anesthetic plan and its attendant risks and benefits were discussed with the patient/family/POA. Questions were solicited and answers provided to the satisfaction of the patient/family/POA.
[2024-10-23] MEDS: ceFAZolin 2 GM/D5W 50 ML 2 GM/50 ML BAG IVPB ×2 (10:54→17:50)
[2024-10-23] MEDS: SODIUM CHLORIDE 0.9% IV 37.7 ML, MORPHINE SULFATE INJ (*CRX) 2 MG, ROPivacaine HCL 1% 2... INFILTRATE (11:30)
[2024-10-23] MEDS: ceFAZolin SODIUM 1 GM VIAL 3 GM (11:31)
[2024-10-23] MEDS: VANCOMYCIN HCL 1,000 MG VIAL 1500 MG TOPICAL (11:33)
[2024-10-23] MEDS: LIDOCAINE 1% LOCAL INJ 10 ML VIAL 5 ML INFILTRATE (11:36)
[2024-10-23] MEDS: GENTAMICIN BONE CEMENT REFOBACIN 1 EACH TOPICAL (13:35)
[2024-10-23] MEDS: ceFAZolin SODIUM 1 GM VIAL 2 GM IV PUSH (13:53)
[2024-10-23] MEDS: TRANEXAMIC ACID 1,000 MG/10 ML AMPUL 1000 MG IV PUSH (13:53)
--- NOTE | 2024-10-23 15:04 | OP_ITS ---
This report was moved to the correct visit on 10/24/2024. The original report was signed by Abdon Corral on 10/23/24 1881. Procedure Note - Brief Procedure Note - Brief Date of procedure: 10/23/24 bilateral knee oa Procedure performed: Right total knee arthroplasty Surgeon: CORINA Aguilar Findings: 84-year-old male underwent right total knee arthroplasty on 10/23. I was involved in the procedure including positioning the patient on the OR table in 1st assisting through the time surgery. Total time spent was 3-1/2 hours Please be advised this is a medical document. It is intended for [id number] communication. It is written in medical language and may contain unfamiliar abbreviations or verbiage. Medical documents are intended to carry relevant information, facts as evident, and the clinical opinion of the practitioner at the time of the encounter. This report may have been done utilizing a voice recognition system. Attempts have been made to correct errors. However, there may be uncorrected grammatical, spelling, and recognition errors present. The file time of this note does not necessarily represent the time the patient was seen. Report Initialized date/time: Abdon Corral PA-C 10/23/24 / 1504 Electronically signed by: Abdon Corral PA-C 10/23/24 [id number]
--- NOTE | 2024-10-23 15:12 | W.PM.PROC2 ---
Procedure Note - Detailed Date of Procedure 10/23/24 Pre-op Diagnosis bilateral knee oa Post-op Diagnosis Same Procedure Performed Cortisone injection left knee, right total knee arthroplasty Surgeon Guy Joseph MD Inpatient Coder Shayna Anesthesia General Description of Procedure Patient was brought to the operating room and general anesthesia was administered. He received 2 g of Ancef weight based vancomycin 1 g of TXA preoperatively. After ChloraPrep prep, 80 mg of Depo-Medrol and 4 cc 1% lidocaine were injected into the left knee without difficulty. The right knee was prepped draped usual fashion. Limb was exsanguinated tourniquet elevated to 300 mmHg. We noted that he had a fixed 15 degree flexion contracture with no pseudolaxity preoperatively his knee was very stiff. And 8 in longitudinal incision was made a standard parapatellar arthrotomy utilized. Partial excision of infrapatellar fat pad was performed a quadriceps synovectomy carried out. Suprapatellar fat pad was excised. The articular cartilage on the patella very good. I felt this was suitable for non resurfacing. A limited lateral facetectomy was performed. Guide feliz was inserted on the femoral canal after aspiration of canal contents using the 5 degree valgus cutting bushing 10 mm of bone removed from the distal femur medially. This removed much less than this laterally. He had a valgus aligned femur. Next the tibial plateau was cut. Initial cut did not quite get to the base of the posteromedial tibial defect fact that was caused by advanced wear in that location. Therefore an additional 2 mm of bone removed. This was cut at 1 degree of varus because of the pronounced varus slope of his femur. Meniscal remnants were excised the PCL recessed. Flexion gap measured 10 mm medially and 13 mm laterally. The femoral sizing guide was applied set at 4? of external rotation which matched Whitesides line. Posterior referencing pinholes were placed. The size 70 vanguard femoral cutting guide was applied AP and chamfer cuts were made. This gave a flush cut the anterior cortex and fit line to line medial to lateral. The knee was very tight in extension no play medially or laterally. An additional 2 mm of bone removed from the distal femur at this time. The tibia was sized to a 75 which fit line to line posterolateral to anteromedial at proper rotation, and punched. Knee was still too tight in extension. Posterior femoral osteophytes removed and a thorough posterior capsular release was performed. Hypertrophic osteophyte on the fabella was debrided. Two additional mm of bone removed the distal femur. On trialing we had 2 mm of play medially and was very tight laterally in extension. Because he did not have a significant varus deformity we did not release medial capsule from tibia but did carefully trimmed down the large osteophytes partially. As we were quite tight laterally, the lateral retinaculum was incised a are worse and why posterolateral corner released does wear a patient in the lateral collateral ligament and the popliteus. With this the knee came out to full extension with 2 mm of play medially and laterally full extension and appropriate anterior posterior drawer at 90? the the 11 insert. We had put the tourniquet down at 90 minutes and tourniquet was elevated at this time after exsanguination of the limb. Step drill was used to make multiple perforations in his tibial plateau and distal femur. His bone density was quite dense. The bony surfaces were thoroughly irrigated and dried using 2 batches of methylmethacrylate 1 the gentamicin powder, the splint was applied to the size 75 vanguard tibial tray and the size 70 right cruciate retaining femoral component. Cement was applied the tibial plateau pressurized tibial component fully seated cement applied the femur the femoral component fully seated the knee brought into extension with a 12 mm 5 and 1 insert. Tourniquet was released total tourniquet time approximately 105 minutes. After cement hardening excess cement was sought for removed and hemostasis was achieved. I trialed with the 11 and I thought this was appropriate and we placed the 11 locked with a locking pin and on read trialing I felt that at 30? we were little bit too loose medially with the 11 with a little bit extra anterior retail advertising executive that position. This was removed and we trialed again with the 12 and I felt this was optimal. We placed a 12 and a new locking clip range of motion stability were reconfirmed. The knee achieved full extension passively. There was a barely positive bounce. In extension there was 2 mm medial 2 mm lateral opening. Palisade flexion was to 125 with the arthrotomy towel clipped 120. Local anesthetic cocktail was injected in the periarticular soft tissues. The wound was again irrigated with antibiotic solution consisting of Ancef and vancomycin in the irrigation. Arthrotomy was closed with 2. Vicryl 1. Unidirectional barbed Stratafix suture skin closed with 2 subcutaneous Vicryl 3-0 subcuticular Monocryl and glue. Two additional g of Ancef weight and 1 g TXA given time wound closure. EBL was 350. No known complications. [facility] Billing Surgery - Charge Forward: Surgery Billing Attestation Student Attestation Cortisone injection left knee, right total knee arthroplasty
--- NOTE | 2024-10-23 15:19 | SUR.PHASEI ---
PATIENT ARRIVED TO PACU DIAPHORETIC. COOL COMPRESSES TO FACE/NECK APPLIED; FAN ON AT BEDSIDE.
--- NOTE | 2024-10-23 15:57 | SUR.PHASEI ---
DR SNOW AND SHAQUILLE CALLED TO ENTER ADMISSION ORDERS. SHAQUILLE WILL COMPLETE WITHIN 25 MINUTES.
--- NOTE | 2024-10-23 17:05 | ADMGEN ---
This patient, Nikko Hassan, was admitted to [facility] Surg Room 329-01. Patient/family oriented to hospital policies and general routines including ID bracelet, bed and alarms, visiting hours, pain management, procedures, bathroom and other care routines, personal items, smoking policy, room service/diet, and visiting hours. Information on how to activate the Rapid Response Team has been discussed. Patient/Family are encouraged to report perceived risks to care and to ask questions if they do not understand what they are told or what they should do.
[2024-10-23] MEDS: SODIUM CHLORIDE 0.9% IV 1,000 ML 125 ML IV CONT (17:50)
[2024-10-23] MEDS: ACETAMINOPHEN 325 MG TABLET 650 MG PO ×2 (17:51→21:51)
[2024-10-23] MEDS: SENNA/DOCUSATE SODIUM TABLET 2 TAB PO (17:51)
[2024-10-23] MEDS: oxyCODONE HCL (*CRX) 2.5 MG TAB IR PO ×2 (17:51→21:51)
[2024-10-23] MEDS: ONDANSETRON INJ 4 MG/2 ML VIAL IV PUSH (17:53)
--- NOTE | 2024-10-23 19:06 | P.CONIM_ITS ---
Assessment and Plan Assessment and plan (1) Knee osteoarthritis: Code(s): M17.9 - Osteoarthritis of knee, unspecified Status: Acute Assessment and Plan: Status post right knee total arthroplasty on 10/23/2024 Orthopedics primary Pain management bowel protocol Postop antibiotics Incentive spirometer Eliquis for VTE (2) Essential hypertension: Code(s): I10 - Essential (primary) hypertension Status: Acute Assessment and Plan: Holding home lisinopril (3) Obstructive sleep apnea: Code(s): G47.33 - Obstructive sleep apnea (adult) (pediatric) Status: Acute Assessment and Plan: Does not use home CPAP (4) Hypercholesterolemia: Code(s): E78.00 - Pure hypercholesterolemia, unspecified Status: Acute Assessment and Plan: Continue Lipitor HPI Date of Consult Consult date: 10/23/24 Requesting Physician: Guy Joseph MD Primary Care Provider: Margaret Renee NP Consult Narrative Reason for consult: Medical management Narrative: Nikko Hassan is a 84 year old male past medical history of BPH, hypertension, hyperlipidemia and bilateral knee osteoarthrosis presents the hospital for a planned right total knee arthroplasty. Patient seen after OR. Patient states the pain is controlled. He has no postop nausea or vomiting. Patient has no complaints. Hospitalist team was consulted for medical management. Review of Systems Review of Systems: 12 systems were reviewed and are negativ e except for as per HPI. [facility] Past Medical History Medical History Lumbar stenosis with neurogenic claudication Paresthesia of both lower extremities BPH (benign prostatic hyperplasia) Hypercholesterolemia Essential hypertension Chronic left shoulder pain Elevated serum creatinine Leukocytosis Surgical History Surgical History History of lumbar fusion Family History Family History Mother Hypertension Sibling Hypertension Family history of malignant neoplasm Social History Social History Social History: Caffeine-Coffee/Soda Smoking status: Never smoker Second hand tobacco smoke exposure: No Additional smoking assessment comments: DENIES ANY FORM OF TOBACCO USE Alcohol intake: never Alcohol use details: none Substance use: never Substance use type: does not use Do You Feel Safe in your Home?: Yes Lack of Transportation: No Lack of Food: Never True Current Housing: I Have Housing Concerned About Future Housing: No Difficulty Paying Gas/Electric Bills: No Difficulty Paying for Meds: No Currently Unemployed: No Education: High School Diploma/GED Difficulty w/ Childcare or Family Care: No Living arrangements: alone Spiritual care concerns: No Meds Home Medications and Allergies Home Medications ?Medication ?Instructions ?Recorded ?Confirmed ?Type tamsulosin 0.4 mg capsule (Flomax) 0.4 mg PO DAILY 04/02/19 10/23/24 History aspirin 81 mg tablet,delayed 81 mg PO DAILY 03/10/20 10/23/24 History release (Adult Low Dose Aspirin) atorvastatin 10 mg tablet See Rx Instructions .Route 06/02/24 10/23/24 Rx .COMPLEX #100 tabs acetaminophen 500 mg tablet 1,000 mg PO Q6H PRN pain 08/21/24 10/08/24 History (Acetaminophen Pain Relief) psyllium husk 0.52 gram capsule 0.52 g PO PRN CONSTIPATION 08/21/24 10/08/24 History (Daily Fiber) lisinopril 30 mg tablet See Rx Instructions .Route 08/25/24 10/23/24 Rx .COMPLEX #100 tabs mupirocin 2 % topical ointment 1 applic topical BID #15 grams 10/20/24 10/23/24 Rx Allergies Allergy/AdvReac Type Severity Reaction Status Date / Time No Known Allergies Allergy Verified 10/23/24 10:37 Vital Signs Vital Signs - 24 hr 10/23/24 10:20 10/23/24 14:57 10/23/24 15:10 Temperature 98.8 F 97.1 F L Pulse Rate 64 75 80 Respiratory Rate 18 21 H 16 Blood Pressure 172/68 H 116/68 135/89 Pulse Oximetry 97 97 98 Oxygen Delivery Room Air Simple Face Mask Simple Face Mask Oxygen Flow Rate 8 8 10/23/24 15:25 10/23/24 15:45 10/23/24 16:00 Temperature Pulse Rate 76 73 74 Respiratory Rate 16 16 15 Blood Pressure 140/61 147/63 H 147/63 H Pulse Oximetry 94 92 93 Oxygen Delivery Room Air Room Air Room Air Oxygen Flow Rate 10/23/24 16:15 10/23/24 16:30 10/23/24 16:45 Temperature Pulse Rate 69 71 67 Respiratory Rate 15 15 16 Blood Pressure 136/74 136/64 132/67 Pulse Oximetry 93 95 96 Oxygen Delivery Room Air Room Air Room Air Oxygen Flow Rate 10/23/24 17:14 10/23/24 17:35 10/23/24 17:50 Temperature 96.7 F L 96.7 F L Pulse Rate 65 61 Respiratory Rate 16 16 Blood Pressure 170/79 H 184/75 H Pulse Oximetry 100 99 Oxygen Delivery Room Air Oxygen Flow Rate 10/23/24 18:20 Temperature 96.7 F L Pulse Rate 65 Respiratory Rate 16 Blood Pressure 187/76 H Pulse Oximetry 100 Oxygen Delivery Oxygen Flow Rate Exam Narrative: General: well appearing, appears stated age. HEENT: normocephalic, atraumatic. Mucous membranes moist. EOMI, PERRLA, bilateral sclera anicteric, no conjunctival injection. Neck supple without JVD, lymphadenopathy, or bruit. Respiratory: clear to ascultation bilaterally. No rales/rhonic/wheezes. Cardiovascular: Regular rate and rhythm, normal S1-S2 upon ascultation. No murmurs, rubs, or clicks. PMI is nondisplaced, capillary refill less than 3 second. Abdomen: Soft, round, no pulsatile masses, nondistended and nontender. No rebound, no guarding. No CVA tenderness, no hepatosplenomegaly. Bowel sounds present to all four quadrants. No high pitch or tinkling sounds, resonant to percussion. Extremities: No cyanosis, clubbing, or edema present. Pulses are palpable 2/2. Right lower extremity dressing clean dry intact Neuro: Alert and orientated x 4. PERRLA. Cranial nerves 2-12 intact without focal deficit. Skin: Warm, dry, and intact, without rash, erythema, or lesion. Psych: pleasant, cooperative, normal speech, normal affect, no hallucinations, n o dysarthia Quality VTE Prophylaxis VTE prophylaxis: mechanical ordered and pharmacologic ordered Hospitalist MIPS Advance Care Plan I have confirmed that the patient's Advanced Care Plan is present, code status is documented, or surrogate decision maker is listed in patient medical record.: Yes Medication Reconciliation I have utilized all available resources to obtain, update and review the patients current medications (includes all prescriptions, OTC, herbals, cannabis, and nutritional supplements).: Yes
[2024-10-23] MEDS: FAMOTIDINE 20 MG TABLET PO (20:53)
[2024-10-23] MEDS: VANCOMYCIN 1,000 MG/NS 250 ML 1,000 MG/250 ML BAG 250 MG IVPB (21:52)
[2024-10-24] MEDS: ACETAMINOPHEN 325 MG TABLET 650 MG PO ×3 (02:33→09:14)
[2024-10-24] MEDS: oxyCODONE HCL (*CRX) 2.5 MG TAB IR PO ×3 (02:33→09:14)
[2024-10-24] MEDS: ceFAZolin 2 GM/D5W 50 ML 2 GM/50 ML BAG IVPB ×2 (02:41→10:31)
[2024-10-24 02:44] VITALS: BP 113/59; PULSE 57; RESP 16; TEMP 36.6; O2SAT 100
[2024-10-24 06:44] VITALS: BP 149/72; PULSE 65; RESP 16; TEMP 36.6; O2SAT 98
[2024-10-24] MEDS: polyethylene glycoL 3350 17 GM POWD.PACK PO (08:19)
[2024-10-24] MEDS: CELECOXIB 100 MG CAPSULE PO (08:21)
[2024-10-24] MEDS: TAMSULOSIN HCL 0.4 MG CAPSULE PO (08:21)
[2024-10-24] MEDS: ATORVASTATIN 10 MG TABLET BY MOUTH (08:22)
[2024-10-24] MEDS: FAMOTIDINE 20 MG TABLET PO (08:22)
[2024-10-24] MEDS: SENNA/DOCUSATE SODIUM TABLET 2 TAB PO (08:22)
[2024-10-24] MEDS: SULFAMETHOXAZOLE/TRIMETHOPRIM 800/160 MG DS TABLET 1 TAB PO (08:22)
[2024-10-24] MEDS: APIXABAN 2.5 MG TABLET PO (08:22)
[2024-10-24] MEDS: VANCOMYCIN 1,000 MG/NS 250 ML 1,000 MG/250 ML BAG 250 MG IVPB (09:11)
--- NOTE | 2024-10-24 09:22 | PM.PNORT ---
Subjective Subjective Date/Time Seen: 10/24/24 09:22 Interval history: Postop day 1 patient is alert. He is afebrile vital signs are stable. He is having no confusion. Pain is very well controlled. Dressing is dry and intact. Patient has been up to the restroom and urinating well. Morning labs are noted. At this point patient is doing very well and would like to go home today. We will have him work with therapy this morning and again this afternoon and once IV antibiotics have been completed and he is done both therapy sessions will plan to discharge him home if he continues to be doing well. Objective Data Vital Signs Vital Signs: Vital Signs - 24 hr 10/23/24 10:20 10/23/24 14:57 10/23/24 15:10 Temperature 98.8 F 97.1 F L Pulse Rate 64 75 80 Respiratory Rate 18 21 H 16 Blood Pressure 172/68 H 116/68 135/89 Pulse Oximetry 97 97 98 Oxygen Delivery Room Air Simple Face Mask Simple Face Mask Oxygen Flow Rate 8 8 10/23/24 15:25 10/23/24 15:45 10/23/24 16:00 Temperature Pulse Rate 76 73 74 Respiratory Rate 16 16 15 Blood Pressure 140/61 147/63 H 147/63 H Pulse Oximetry 94 92 93 Oxygen Delivery Room Air Room Air Room Air Oxygen Flow Rate 10/23/24 16:15 10/23/24 16:30 10/23/24 16:45 Temperature Pulse Rate 69 71 67 Respiratory Rate 15 15 16 Blood Pressure 136/74 136/64 132/67 Pulse Oximetry 93 95 96 Oxygen Delivery Room Air Room Air Room Air Oxygen Flow Rate 10/23/24 17:14 10/23/24 17:35 10/23/24 17:50 Temperature 96.7 F L 96.7 F L Pulse Rate 65 61 Respiratory Rate 16 16 Blood Pressure 170/79 H 184/75 H Pulse Oximetry 100 99 Oxygen Delivery Room Air Oxygen Flow Rate 10/23/24 18:20 10/23/24 19:30 10/23/24 22:44 Temperature 96.7 F L 96.6 F L 97.2 F L Pulse Rate 65 65 63 Respiratory Rate 16 16 16 Blood Pressure 187/76 H 149/72 H 129/57 L Pulse Oximetry 100 97 97 Oxygen Delivery Oxygen Flow Rate 10/24/24 02:44 10/24/24 06:44 Temperature 97.9 F 97.8 F Pulse Rate 57 L 65 Respiratory Rate 16 16 Blood Pressure 113/59 L 149/72 H Pulse Oximetry 100 98 Oxygen Delivery Oxygen Flow Rate Intake/Output Intake/Output: Intake & Output 10/21/24 10/22/24 10/23/24 10/24/24 23:59 23:59 23:59 23:59 Intake Total 2150 180 Balance 2150 180 Meds/Results Medications: Active Medications Generic Name Dose Route Start Last Admin Trade Name Freq PRN Reason Stop Dose Admin Acetaminophen 650 mg 10/23/24 18:00 10/24/24 09:14 Acetaminophen 325 Mg Tablet PO 650 mg Q4H RYAN Administration Apixaban 2.5 mg 10/24/24 09:00 10/24/24 08:22 Apixaban 2.5 Mg Tablet PO 11/04/24 21:01 2.5 mg Q12HR RYAN Administration Atorvastatin Calcium 10 mg 10/24/24 09:00 10/24/24 08:22 Atorvastatin 10 Mg Tablet BY MOUTH 10 mg DAILY RYAN Administration Celecoxib 100 mg 10/24/24 08:00 10/24/24 08:21 Celecoxib 100 Mg Capsule PO 100 mg DAILY@0800 RYAN Administration Diphenhydramine HCl 25 mg 10/23/24 16:59 Diphenhydramine Hcl Inj 50 Mg/Ml Vial IV PUSH Q6H PRN Itching Famotidine 20 mg 10/23/24 21:00 10/24/24 08:22 Famotidine 20 Mg Tablet PO 20 mg Q12HR RYAN Administration Cefazolin Sodium 2 gm in 50 mls @ 100 mls/hr 10/23/24 19:00 10/24/24 02:41 Ancef 2 Gm/D5w 50 Ml IVPB 10/24/24 11:29 100 mls/hr Q8H RYAN Administration Vancomycin HCl 1,000 mg in 250 mls @ 250 mls/hr 10/23/24 22:00 10/24/24 09:11 Vancomycin 1,000 Mg/Ns 250 Ml IVPB 10/24/24 10:59 250 mls/hr Q12H RYAN Administration Morphine Sulfate 2 mg 10/23/24 16:59 Morphine Sulfate (*Crx) 2 Mg/Ml Inj IV PUSH Q2H PRN Breakthrough Pain Rated 4-6 or NPO Naloxone HCl 0.1 mg 10/23/24 16:59 Naloxone Hcl 0.4 Mg/Ml Vial IV PUSH Q2M PRN Opiate Reversal Ondansetron HCl 4 mg 10/23/24 16:59 10/23/24 17:53 Ondansetron Inj 4 Mg/2 Ml Vial IV PUSH 4 mg Q4H PRN Administration Nausea And Vomiting Oxycodone HCl 2.5 mg 10/23/24 18:00 10/24/24 09:14 Oxycodone Hcl (*Crx) 2.5 Mg Tab Ir PO 2.5 mg Q4H RYAN Administration Oxycodone HCl 2.5 mg 10/23/24 16:59 Oxycodone Hcl (*Crx) 2.5 Mg Tab Ir PO Q4H PRN Pain Rated 4-6 Polyethylene Glycol 17 gm 10/24/24 09:00 10/24/24 08:19 Polyethylene Glycol 3350 17 Gm Powd.Pack PO 17 gm QAM RYAN Administration Senna/Docusate Sodium 2 tab 10/23/24 17:00 10/24/24 08:22 Senna/Docusate Sodium Tablet PO 2 tab BID RYAN Administration Tamsulosin HCl 0.4 mg 10/24/24 09:00 10/24/24 08:21 Tamsulosin Hcl 0.4 Mg Capsule PO 0.4 mg DAILY RYAN Administration Trimethoprim/Sulfamethoxazole 1 tab 10/24/24 09:00 10/24/24 08:22 Sulfamethoxazole/Trimethoprim 800/160 Mg Ds Tablet PO 1 tab Q12HR RYAN Administration Radiology Results: ITS Impressions Knee X-Ray 10/23/24 15:06 IMPRESSION: 1. Right total knee arthroplasty, negative for postoperative purposes.
--- NOTE | 2024-10-24 11:19 | P.PNIM_ITS ---
Progress Note: A&P Assessment and Plan (1) Knee osteoarthritis: Code(s): M17.9 - Osteoarthritis of knee, unspecified Status: Acute Assessment and Plan: Status post right knee total arthroplasty on 10/23/2024 Orthopedics primary Pain management bowel protocol Postop antibiotics Incentive spirometer Eliquis for VTE (2) Essential hypertension: Code(s): I10 - Essential (primary) hypertension Status: Acute Assessment and Plan: Holding home lisinopril Blood pressure trending up and he reports taking regularly at home Can likely resume home lisinopril but should recheck potassium while on Bactrim, can cause hyperkalemia (3) Obstructive sleep apnea: Code(s): G47.33 - Obstructive sleep apnea (adult) (pediatric) Status: Acute Assessment and Plan: Does not use home CPAP (4) Hypercholesterolemia: Code(s): E78.00 - Pure hypercholesterolemia, unspecified Status: Acute Assessment and Plan: Continue Lipitor Time Spent With Patient Time: 35 minutes Subjective Date/time seen: 10/24/24 11:19 Interval history: Pain controlled Blood pressure trending up Likely discharge soon Review of Systems Review of Systems: 12 systems were reviewed and are negativ e except for as per HPI. Exam Narrative: General: well appearing, appears stated age. HEENT: normocephalic, atraumatic. Mucous membranes moist. EOMI, PERRLA, bilateral sclera anicteric, no conjunctival injection. Neck supple without JVD, lymphadenopathy, or bruit. Respiratory: clear to ascultation bilaterally. No rales/rhonic/wheezes. Cardiovascular: Regular rate and rhythm, normal S1-S2 upon ascultation. No murmurs, rubs, or clicks. PMI is nondisplaced, capillary refill less than 3 second. Abdomen: Soft, round, no pulsatile masses, nondistended and nontender. No r ebound, no guarding. No CVA tenderness, no hepatosplenomegaly. Bowel sounds present to all four quadrants. No high pitch or tinkling sounds, resonant to percussion. Extremities: No cyanosis, clubbing, or edema present. Pulses are palpable 2/2. Right lower extremity dressing clean dry intact Neuro: Alert and orientated x 4. PERRLA. Cranial nerves 2-12 intact without focal deficit. Skin: Warm, dry, and intact, without rash, erythema, or lesion. Psych: pleasant, cooperative, normal speech, normal affect, no hallucinations, no dysarthia Objective Data Vital Signs Vital Signs: Vital Signs - 24 hr 10/23/24 14:57 10/23/24 15:10 10/23/24 15:25 Temperature 97.1 F L Pulse Rate 75 80 76 Respiratory Rate 21 H 16 16 Blood Pressure 116/68 135/89 140/61 Pulse Oximetry 97 98 94 Oxygen Delivery Simple Face Mask Simple Face Mask Room Air Oxygen Flow Rate 8 8 10/23/24 15:45 10/23/24 16:00 10/23/24 16:15 Temperature Pulse Rate 73 74 69 Respiratory Rate 16 15 15 Blood Pressure 147/63 H 147/63 H 136/74 Pulse Oximetry 92 93 93 Oxygen Delivery Room Air Room Air Room Air Oxygen Flow Rate 10/23/24 16:30 10/23/24 16:45 10/23/24 17:14 Temperature Pulse Rate 71 67 Respiratory Rate 15 16 Blood Pressure 136/64 132/67 Pulse Oximetry 95 96 Oxygen Delivery Room Air Room Air Room Air Oxygen Flow Rate 10/23/24 17:35 10/23/24 17:50 10/23/24 18:20 Temperature 96.7 F L 96.7 F L 96.7 F L Pulse Rate 65 61 65 Respiratory Rate 16 16 16 Blood Pressure 170/79 H 184/75 H 187/76 H Pulse Oximetry 100 99 100 Oxygen Delivery Oxygen Flow Rate 10/23/24 19:30 10/23/24 22:44 10/24/24 02:44 Temperature 96.6 F L 97.2 F L 97.9 F Pulse Rate 65 63 57 L Respiratory Rate 16 16 16 Blood Pressure 149/72 H 129/57 L 113/59 L Pulse Oximetry 97 97 100 Oxygen Delivery Oxygen Flow Rate 10/24/24 06:44 10/24/24 08:54 10/24/24 10:00 Temperature 97.8 F Pulse Rate 65 Respiratory Rate 16 Blood Pressure 149/72 H Pulse Oximetry 98 Oxygen Delivery Room Air Room Air Oxygen Flow Rate Intake/Output Intake/Output: Intake & Output 10/21/24 10/22/24 10/23/24 10/24/24 23:59 23:59 23:59 23:59 Intake Total 2150 530 Output Total 300 Balance 2150 230 Meds/Results Medications: Active Medications Generic Name Dose Route Start Last Admin Trade Name Freq PRN Reason Stop Dose Admin Acetaminophen 650 mg 10/23/24 18:00 10/24/24 09:14 Acetaminophen 325 Mg Tablet PO 650 mg Q4H RYAN Administration Apixaban 2.5 mg 10/24/24 09:00 10/24/24 08:22 Apixaban 2.5 Mg Tablet PO 11/04/24 21:01 2.5 mg Q12HR RYAN Administration Atorvastatin Calcium 10 mg 10/24/24 09:00 10/24/24 08:22 Atorvastatin 10 Mg Tablet BY MOUTH 10 mg DAILY RYAN Administration Celecoxib 100 mg 10/24/24 08:00 10/24/24 08:21 Celecoxib 100 Mg Capsule PO 100 mg DAILY@0800 RYAN Administration Diphenhydramine HCl 25 mg 10/23/24 16:59 Diphenhydramine Hcl Inj 50 Mg/Ml Vial IV PUSH Q6H PRN Itching Famotidine 20 mg 10/23/24 21:00 10/24/24 08:22 Famotidine 20 Mg Tablet PO 20 mg Q12HR RYAN Administration Cefazolin Sodium 2 gm in 50 mls @ 100 mls/hr 10/23/24 19:00 10/24/24 11:01 Ancef 2 Gm/D5w 50 Ml IVPB 10/24/24 11:29 Infused Q8H RYAN Infusion Morphine Sulfate 2 mg 10/23/24 16:59 Morphine Sulfate (*Crx) 2 Mg/Ml Inj IV PUSH Q2H PRN Breakthrough Pain Rated 4-6 or NPO Naloxone HCl 0.1 mg 10/23/24 16:59 Naloxone Hcl 0.4 Mg/Ml Vial IV PUSH Q2M PRN Opiate Reversal Ondansetron HCl 4 mg 10/23/24 16:59 10/23/24 17:53 Ondansetron Inj 4 Mg/2 Ml Vial IV PUSH 4 mg Q4H PRN Administration Nausea And Vomiting Oxycodone HCl 2.5 mg 10/23/24 18:00 10/24/24 09:14 Oxycodone Hcl (*Crx) 2.5 Mg Tab Ir PO 2.5 mg Q4H RYAN Administration Oxycodone HCl 2.5 mg 10/23/24 16:59 Oxycodone Hcl (*Crx) 2.5 Mg Tab Ir PO Q4H PRN Pain Rated 4-6 Polyethylene Glycol 17 gm 10/24/24 09:00 10/24/24 08:19 Polyethylene Glycol 3350 17 Gm Powd.Pack PO 17 gm QAM RYAN Administration Senna/Docusate Sodium 2 tab 10/23/24 17:00 10/24/24 08:22 Senna/Docusate Sodium Tablet PO 2 tab BID RYAN Administration Tamsulosin HCl 0.4 mg 10/24/24 09:00 10/24/24 08:21 Tamsulosin Hcl 0.4 Mg Capsule PO 0.4 mg DAILY RYAN Administration Trimethoprim/Sulfamethoxazole 1 tab 10/24/24 09:00 10/24/24 08:22 Sulfamethoxazole/Trimethoprim 800/160 Mg Ds Tablet PO 1 tab Q12HR RYAN Administration Radiology Results: ITS Impressions Knee X-Ray 10/23/24 15:06 IMPRESSION: 1. Right total knee arthroplasty, negative for postoperative purposes. Quality VTE Prophylaxis VTE prophylaxis: mechanical ordered and pharmacologic ordered Hospitalist MIPS Advance Care Plan I have confirmed that the patient's Advanced Care Plan is present, code status is documented, or surrogate decision maker is listed in patient medical record.: Yes Medication Reconciliation I have utilized all available resources to obtain, update and review the patients current medications (includes all prescriptions, OTC, herbals, cannabis, and nutritional supplements).: Yes
== END 2024-10-24 11:40 | disposition home or self-care (01) ==
LOC: ANHSURGERY 09:17 → ANH3MEDSUR 17:02
PROVIDERS: PCP Nurse Practitioner; Visit Provider Orthopaedic Surgery
PROC: (CPT 27447; principal; 2024-10-23 11:30)
DX: M17.0 Bilateral primary osteoarthritis of knee (principal); M25.761 Osteophyte, right knee; I10 Essential (primary) hypertension; G47.33 Obstructive sleep apnea (adult) (pediatric); E78.00 Pure hypercholesterolemia, unspecified; N40.0 Benign prostatic hyperplasia without lower urinary tract symptoms; M48.062 Spinal stenosis, lumbar region with neurogenic claudication; D72.829 Elevated white blood cell count, unspecified; G89.29 Other chronic pain; M25.512 Pain in left shoulder; R20.2 Paresthesia of skin; E66.9 Obesity, unspecified; Z68.36 Body mass index [BMI] 36.0-36.9, adult; Z79.82 Long term (current) use of aspirin; Z98.1 Arthrodesis status; Z80.9 Family history of malignant neoplasm, unspecified
CPT/HCPCS: 27447; 20610; 73560; 97110; 97161; 97165; A9270; C1713; C1776; J0171; J0690; J1010; J1100; J1171; J1885; J2003; J2270; J2405; J2704; J2795; J3370; J7030; J7120

== ENCOUNTER 2024-10-27 10:19 | Outpatient (CLI) | payer MEDICARE, SELFPAY ==
[2024-10-27 10:55] LABS: Basophils Percent Auto 0.2 % (0.2-1.2); Eosinophils Absolute Auto 0.2 K/mm3 (0-0.3); Eosinophils Percent Auto 1.3 % (0-4.4); Hematocrit 33.4 % (42.0-52.0); Immature Granulocyte Absolute 0.08 K/mm3 (0.00-0.031); Immature Granulocyte Percent A 0.7 % (0-0.5); Lymphocytes Percent Auto 10.7 % (18.3-44.2); Mean Corpuscular HGB Conc 32.9 g/dl (32-36); Mean Platelet Volume 11.2 fl (7.4-10.4); Monocytes Absolute Auto 0.9 K/mm3 (0.1-0.6); Monocytes Percent Auto 7.5 % (2.6-8.5); Neutrophils Absolute Auto 9.7 K/mm3 (1.3-6.7); Neutrophils Percent Auto 79.6 % (45.5-73.1); Platelet Count Result 219 k/mm3 (150-375); Red Blood Count 3.67 M/mm3 (4.6-6.20); Red Cell Distribution Width 14.5 % (11.5-14.5); White Blood Count 12.2 K/mm3 (4.5-10.0)
[2024-10-27 11:07] LABS: Alanine Aminotransferase 18 U/L (6-50); Albumin Level 3.3 g/dL (3.5-5.1); Alkaline Phosphatase 66 U/L (38-126); Anion Gap 10 mmol/L (4-12); Aspartate Amino Transferase 29 U/L (17-59); Bilirubin,Total 0.7 mg/dL (0.2-1.3); Blood Urea Nitrogen 21 mg/dL (9-20); Calcium 8.5 mg/dL (8.4-10.2); Carbon Dioxide 21 mmol/L (22-30); Chloride 107 mmol/L (98-107); Estimated Glomerular Filt Rate 54; Glucose 114 mg/dL (65-110); Sodium 138 mmol/L (137-145); Total Protein 6.5 g/dL (6.3-8.2)
--- OUTSIDE RECORDS SUMMARY | 2024-10-27 11:13 | XMS_ITS | Referral Summary ---
Author Organization [facility] [address] [place] [address] [place] [id number] Care Team Providers Care Clearing Inspector Name Role Phone Marshall Edouard DO Primary Care Provider +1- [phone] Allergies No known active allergies Medications atorvastatin [...] (08/12/2018): Added automatically from request for surgery [id number] Biceps tendinitis of left upper extremity 2018 Overview (08/12/2018): Added automatically from request for surgery [id number] Social History Tobacco Use Types Packs/Day Years Used Date Smoking Tobacco: Never Smokeless Tobacco: Never Alcohol Use Standard Drinks/Week Comments Not Currently 0 (1 standard drink = 0.6 oz pur e alcohol) PHQ-2 Answer Date Recorded PHQ-2 Score 0 01/03/2019 Sex and Gender Information Value Date Recorded Sex Assigned at Not on file 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 Gender Identity Not on file Sexual Orientation [...] on file Medical Devices Implanted Type Area File System Installer Device Identifier Shelf Expiration Date Model / Serial / Lot Exactech 320-20-00 Reverse Torque Define Shoulder Kit Screw - [id number] - [id number] Implanted:Qty: 1 on 08/20/2018 by Aric Vang MD at [facility] Left: Shoulder Exactech 07/08/2023 320-20-00 / [id number] / Exactech 320-15-05 Equinoxe Lock Reverse Shoulder Glenosphere Screw Bone - [id number] - [id number] Implanted:Qty: 1 on 08/20/2018 by Aric Vang MD at [facility] Left: Shoulder Exactech 04/09/2023 320-15-05 / [id number] / Exactech 320-15-03 Equinoxe Augment Posterior Glenoid Shoulder 8d Plate Bone - [id number] - [id number] Implanted:Qty: 1 on 08/20/2018 by Aric Vang MD at [facility] Left: Shoulder Exactech 11/12/2027 320-15-03 / [id number] / Exactech 320-20-38 Equinoxe 4.5mm 38mm Kit Compression Lock Cap Reverse Shoulder - [id number] - [id number] Implanted:Qty: 1 on 08/20/2018 by Aric Vang MD at [facility] Left: Shoulder Exactech 09/06/2022 320-20-38 / [id number] / Exactech 320-01-38 38mm Glenosphere Reverse Shoulder Component Glenoid - [id number] - [id number] Implanted:Qty: 1 on 08/20/2018 by Aric Vang MD at [facility] Left: Shoulder Exactech 07/03/2028 320-01-38 / [id number] / Exactech 320-20-34 Equinoxe 4.5mm 34mm Kit Compression Lock Cap Reverse Shoulder - [id number] - [id number] Implanted:Qty: 1 on 08/20/2018 by Aric Vang MD at [facility] Left: Shoulder Exactech 06/14/2023 320-20-34 / [id number] / Exactech 300-01-11 Equinoxe 11mm Press Fit Primary Shoulder Stem Humeral - [id number] - [id number] Implanted:Qty: 1 on 08/20/2018 by Aric Vang MD at [facility] Left: Humerus Exactech 12/20/2027 300-01-11 / [id number] / Exactech 320-10-00 Equinoxe Reverse Shoulder +0mm Tray Humeral Adapter - [id number] - [id number] Implanted:Qty: 1 on 08/20/2018 by Aric Vang MD at [facility] Left: Humerus Exactech 07/21/2028 320-10-00 / [id number] / Exactech 320-38-00 Equinoxe 38mm Reverse Shoulder +0mm Liner Humeral - [id number] - [id number] Implanted:Qty: 1 on 08/20/2018 by Aric Vang MD at [facility] Left: Shoulder Exactech 06/30/2023 320-38-00 / [id number] / [facility] Address: [address] [address] [place] [address] [address] HMO RE[facility] Address: [address] [address] [place] [address] R HMO REF [facility] MED[facility] Address: [address] [address] [place] [address] Advance Directives For more information, please contact: [phone] * Full Code (Latest Code Status on File) Date Activated Date Inactivated Comments 08/20/2018 12:07 PM 08/22/2018 9:04 PM Care Teams Clearing Inspector Relationship Specialty Start Date End Date Marshall Edouard DO PCP - General Internal Medicine 07/11/18
--- OUTSIDE RECORDS SUMMARY | 2024-10-27 11:13 | XMS_ITS | Clinical Summary ---
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 Gender Identity Not on file Sexual Orientation [...] on file Medical Devices Implanted Type Area Security Tech Device Identifier Shelf Expiration Date Model / Serial / Lot Exactech 320-20- Reverse Torque Define Shoulder Kit Screw - [id number] - [id number] Implanted:Qty: 1 on 08/20/2018 by Aric Vang MD at [facility] Left: Shoulder Exactech 07/08/2023 320-20-00 / [id number] / Exactech 320-15-05 Equinoxe Lock Reverse Shoulder Glenosphere Screw Bone - [id number] - [id number] Implanted:Qty: 1 on 08/20/2018 by Aric Vang MD at [facility] Left: Shoulder Exactech 04/09/2023 320-15-05 / [id number] / Exactech 320-15-03 Equinoxe Augment Posterior Glenoid Shoulder 8d Plate Bone - [id number] - [id number] Implanted:Qty: 1 on 08/20/2018 by Aric Vang MD at [facility] Left: Shoulder Exactech 11/12/2027 320-15-03 / [id number] / Exactech 320-20-38 Equinoxe 4.5mm 38mm Kit Compression Lock Cap Reverse Shoulder - [id number] - [id number] Implanted:Qty: 1 on 08/20/2018 by Aric Vang MD at [facility] Left: Shoulder Exactech 09/06/2022 320-20-38 / [id number] / Exactech 320-01-38 38mm Glenosphere Reverse Shoulder Component Glenoid - [id number] - [id number] Implanted:Qty: 1 on 08/20/2018 by Aric Vang MD at [facility] Left: Shoulder Exactech 07/03/2028 320-01-38 / [id number] / Exactech 320-20-34 Equinoxe 4.5mm 34mm Kit Compression Lock Cap Reverse Shoulder - [id number] - [id number] Implanted:Qty: 1 on 08/20/2018 by Aric Vang MD at [facility] Left: Shoulder Exactech 06/14/2023 320-20-34 / [id number] / Exactech 300-01-11 Equinoxe 11mm Press Fit Primary Shoulder Stem Humeral - [id number] - [id number] Implanted:Qty: 1 on 08/20/2018 by Aric Vang MD at [facility] Left: Humerus Exactech 12/20/2027 300-01-11 / [id number] / Exactech 320-10-00 Equinoxe Reverse Shoulder +0mm Tray Humeral Adapter - [id number] - [id number] Implanted:Qty: 1 on 08/20/2018 by Aric Vang MD at [facility] Left: Humerus Exactech 07/21/2028 320-10-00 / [id number] / Exactech 320-38-00 Equinoxe 38mm Reverse Shoulder +0mm Liner Humeral - [id number] - [id number] Implanted:Qty: 1 on 08/20/2018 by Aric Vang MD at [facility] Left: Shoulder Exactech 06/30/2023 320-38-00 / [id number] / Insurance R HMO REF Member Subscriber Plan / Payer (Ef fective 2018-Present) Name:Nikko Hassan Relation to Subscriber:Self Name:Nikko Hassan Payer ID:[id number] (NAIC) Type:[facility] MEDIC[facility] Address: [place] [id number] HMO REF Member Subscriber Plan / Payer (Ef fective 2018-Present) Name:Nikko Hassan Relation to Subscriber:Self Name:Nikko Hassan Payer ID:[id number] (NAIC) Type:[facility] MEDICARE Address: [place] [id number] R HMO REF Member Subscriber Plan / Payer (Ef fective 2018-Present) Name:Nikko Hassan Relation to Subscriber:Self Name:Nikko Hassan Payer ID:[id number] (NAIC) Type:[facility] MEDIC[facility] Address: [place] [id number] Advance Directives For more information, please contact: [phone] * Full Code (Latest Code Status on File) Date Activated Date Inactivated Comments 08/20/2018 12:07 PM 08/22/2018 9:04 PM Care Teams Workforce Management Analyst Relationship Specialty Start Date End Date Marshall Edouard, PCP - General Internal Medicine 07/11/18
== END 2024-10-27 10:20 | disposition home or self-care (01) ==
LOC: ANHLAB 10:21
PROVIDERS: PCP Nurse Practitioner; Visit Provider Orthopaedic Surgery
DX: Z96.651 Presence of right artificial knee joint (principal); Z98.890 Other specified postprocedural states
CPT/HCPCS: 36415; 80053; 85025

== ENCOUNTER 2024-12-03 11:43 | Outpatient (CLI) | payer MEDICARE, SELFPAY ==
--- NOTE | ~2024-12-03 | US_ITS ---
EXAMINATION:US venous doppler LE RT INDICATION:Lower extremity edema TECHNIQUE: Multiple grayscale, color flow and Doppler images of the right lower extremity deep venous systems were obtained and reviewed. COMPARISON:No prior studies for comparison. FINDINGS: The common femoral, superficial femoral and popliteal veins demonstrate normal respiratory variation, augmentation and compressibility. Color flow is also seen within the posterior tibial, pe roneal, greater saphenous and profunda veins. IMPRESSION: 1: No lower extremity deep venous thrombosis. Reviewed, dictated and finalized at location A.
--- OUTSIDE RECORDS SUMMARY | 2024-12-03 11:48 | XMS_ITS | Clinical Summary ---
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 Gender Identity Not on file Sexual Orientation [...] on file Medical Devices Implanted Type Area Typewriters Functional Tester Device Identifier Shelf Expiration Date Model / Serial / Lot Exactech 320-20- Reverse Torque Define Shoulder Kit Screw - [id number] - [id number] Implanted:Qty: 1 on 08/20/2018 by Aric Vang MD at [facility] Left: Shoulder Exactech 07/08/2023 320-20-00 / [id number] / Exactech 320-15-05 Equinoxe Lock Reverse Shoulder Glenosphere Screw Bone - [id number] - [id number] Implanted:Qty: 1 on 08/20/2018 by Aric Vang MD at [facility] Left: Shoulder Exactech 04/09/2023 320-15-05 / [id number] / Exactech 320-15-03 Equinoxe Augment Posterior Glenoid Shoulder 8d Plate Bone - [id number] - [id number] Implanted:Qty: 1 on 08/20/2018 by Aric Vang MD at [facility] Left: Shoulder Exactech 11/12/2027 320-15-03 / [id number] / Exactech 320-20-38 Equinoxe 4.5mm 38mm Kit Compression Lock Cap Reverse Shoulder - [id number] - [id number] Implanted:Qty: 1 on 08/20/2018 by Aric Vang MD at [facility] Left: Shoulder Exactech 09/06/2022 320-20-38 / [id number] / Exactech 320-01-38 38mm Glenosphere Reverse Shoulder Component Glenoid - [id number] - [id number] Implanted:Qty: 1 on 08/20/2018 by Aric Vang MD at [facility] Left: Shoulder Exactech 07/03/2028 320-01-38 / [id number] / Exactech 320-20-34 Equinoxe 4.5mm 34mm Kit Compression Lock Cap Reverse Shoulder - [id number] - [id number] Implanted:Qty: 1 on 08/20/2018 by Aric Vang MD at [facility] Left: Shoulder Exactech 06/14/2023 320-20-34 / [id number] / Exactech 300-01-11 Equinoxe 11mm Press Fit Primary Shoulder Stem Humeral - [id number] - [id number] Implanted:Qty: 1 on 08/20/2018 by Aric Vang MD at [facility] Left: Humerus Exactech 12/20/2027 300-01-11 / [id number] / Exactech 320-10-00 Equinoxe Reverse Shoulder +0mm Tray Humeral Adapter - [id number] - [id number] Implanted:Qty: 1 on 08/20/2018 by Aric Vang MD at [facility] Left: Humerus Exactech 07/21/2028 320-10-00 / [id number] / Exactech 320-38-00 Equinoxe 38mm Reverse Shoulder +0mm Liner Humeral - [id number] - [id number] Implanted:Qty: 1 on 08/20/2018 by Aric Vang MD at [facility] Left: Shoulder Exactech 06/30/2023 320-38-00 / [id number] / Insurance R HMO REF Member Subscriber Plan / Payer (Ef fective 2018-Present) Name:Nikko Hassan Relation to Subscriber:Self Name:Nikko Hassan Payer ID:[id number] (NAIC) Type:[facility] Address: [place] [id number] HMO REF Member Subscriber Plan / Payer (Ef fective 2018-Present) Name:Nikko Hassan Relation to Subscriber:Self Name:Nikko Hassan Payer ID:[id number] (NAIC) Type:[facility] Address: [place] [id number] R HMO REF Member Subscriber Plan / Payer (Ef fective 2018-Present) Name:Nikko Hassan Relation to Subscriber:Self Name:Nikko Hassan Payer ID:[id number] (NAIC) Type:[facility] Address: [place] [id number] Advance Directives For more information, please contact: [phone] * Full Code (Latest Code Status on File) Date Activated Date Inactivated Comments 08/20/2018 12:07 PM 08/22/2018 9:04 PM Care Teams Ropewalk Rope Maker Relationship Specialty Start Date End Date Marshall Edouard, PCP - General Internal Medicine 07/11/18
--- OUTSIDE RECORDS SUMMARY | 2024-12-03 11:48 | XMS_ITS | Clinical Summary ---
Author Organization [facility] Address [address] [place] [address] Care Team Providers Care Barrel Polisher Inside Name Role Phone Marshall Edouard DO Primary Care Provider [phone]- [phone] Mago Benjamin MD Unavailable Allergies No known active allergies Medications tamsulosin [...] place to sleep or slept in a prison (including now)? 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:42 PM CERAMIC COATER Gender Identity Not on file Sexual Orientation [...] (272 lb 4.3 oz) 07/17/2022 4:19 AM CERAMIC COATER Height 177.8 cm (5' 10) 07/11/2022 10: 30 AM CERAMIC COATER Body Mass Index 39.07 07/11/2022 10:30 AM CERAMIC COATER Plan of Treatment Health Maintenance Due Date [...] therapy recs. Medical Devices Implanted Type Area Clinical Care Manager Device Identifier Shelf Expiration Date Model / Serial / Lot Graft Duragen Matrix 1 X 1 - [id number] Implanted:Qty : 1 on 07/11/2022 by George Ashley MD at [facility] Dura N/A: Spine Lumbar [employer] [id number] / / Agent Hemostatic Thrombin Sterile Kit Matrix Surgiflo 8ml - [id number] Implanted:Qty : 1 on 07/11/2022 by George Ashley MD at [facility] Sealant [employer] 10/12/2023 [id number] / / [id number] Body, Top Loading Implanted:Qty : 8 on 07/11/2022 by George Ashley MD at [facility] Spine Components N/A: Spine Lumbar ORTHOFIX 36-2100 / / Set Screw Implanted:Qty : 8 on 07/11/2022 by George Ashley MD at [facility] Spine Components N/A: Spine Lumbar ORTHOFIX 36-2000 / / 6.5x50mm Screw Implanted:Qty : 6 on 07/11/2022 by George Ashley MD at [facility] Spine Components N/A: Spine Lumbar ORTHOFIX 44-5650 / / 6.5x55mm Screw Implanted:Qty : 2 on 07/11/2022 by George Ashley MD at [facility] Spine Components N/A: Spine Lumbar ORTHOFIX 44-5655 / / 110mm Billy Implanted:Qty : 2 on 07/11/2022 by George Ashley MD at [facility] Spine Components N/A: Spine Lumbar ORTHOFIX 52-6110 / / Insurance [facility] Advance Directives * Full Code (Latest Code Status on File) Date Activated Date Inactivated Comments 07/18/2022 3:04 PM * Full Code Date Activated Date Inactivated Comments 07/11/2022 7:44 PM 07/17/2022 6:26 PM Care Teams Barrel Polisher Inside Relationship Specialty Start Date End Date Marshall Edouard DO [address] [facility] [address] [place] [address] PCP - General INTERNAL MEDICINE 07/05/22 Mago Benjamin MD [address] [place] [address] PULMONARY DISEASE 07/05/22
--- OUTSIDE RECORDS SUMMARY | 2024-12-03 11:48 | XMS_ITS | Referral Summary ---
Author Organization [facility] [address] [place] [address] [place] [id number] Care Team Providers Care Senior Risk Manager Name Role Phone Marshall Edouard DO Primary Care Provider +1- [phone] Allergies No known active allergies Medications atorvastatin [...] (08/12/2018): Added automatically from request for surgery [id number] Biceps tendinitis of left upper extremity 2018 Overview (08/12/2018): Added automatically from request for surgery [id number] Social History Tobacco Use Types Packs/Day Years Used Date Smoking Tobacco: Never Smokeless Tobacco: Never Alcohol Use Standard Drinks/Week Comments Not Currently 0 (1 standard drink = 0.6 oz pur e alcohol) PHQ-2 Answer Date Recorded PHQ-2 Score 0 01/03/2019 Sex and Gender Information Value Date Recorded Sex Assigned at Not on file 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 Gender Identity Not on file Sexual Orientation [...] on file Medical Devices Implanted Type Area Transit Vehicle Inspector Device Identifier Shelf Expiration Date Model / Serial / Lot Exactech 320-20-00 Reverse Torque Define Shoulder Kit Screw - [id number] - [id number] Implanted:Qty: 1 on 08/20/2018 by Aric Vang MD at [facility] Left: Shoulder Exactech 07/08/2023 320-20-00 / [id number] / Exactech 320-15-05 Equinoxe Lock Reverse Shoulder Glenosphere Screw Bone - [id number] - [id number] Implanted:Qty: 1 on 08/20/2018 by Aric Vang MD at [facility] Left: Shoulder Exactech 04/09/2023 320-15-05 / [id number] / Exactech 320-15-03 Equinoxe Augment Posterior Glenoid Shoulder 8d Plate Bone - [id number] - [id number] Implanted:Qty: 1 on 08/20/2018 by Aric Vang MD at [facility] Left: Shoulder Exactech 11/12/2027 320-15-03 / [id number] / Exactech 320-20-38 Equinoxe 4.5mm 38mm Kit Compression Lock Cap Reverse Shoulder - [id number] - [id number] Implanted:Qty: 1 on 08/20/2018 by Aric Vang MD at [facility] Left: Shoulder Exactech 09/06/2022 320-20-38 / [id number] / Exactech 320-01-38 38mm Glenosphere Reverse Shoulder Component Glenoid - [id number] - [id number] Implanted:Qty: 1 on 08/20/2018 by Aric Vang MD at [facility] Left: Shoulder Exactech 07/03/2028 320-01-38 / [id number] / Exactech 320-20-34 Equinoxe 4.5mm 34mm Kit Compression Lock Cap Reverse Shoulder - [id number] - [id number] Implanted:Qty: 1 on 08/20/2018 by Aric Vang MD at [facility] Left: Shoulder Exactech 06/14/2023 320-20-34 / [id number] / Exactech 300-01-11 Equinoxe 11mm Press Fit Primary Shoulder Stem Humeral - [id number] - [id number] Implanted:Qty: 1 on 08/20/2018 by Aric Vang MD at [facility] Left: Humerus Exactech 12/20/2027 300-01-11 / [id number] / Exactech 320-10-00 Equinoxe Reverse Shoulder +0mm Tray Humeral Adapter - [id number] - [id number] Implanted:Qty: 1 on 08/20/2018 by Aric Vang MD at [facility] Left: Humerus Exactech 07/21/2028 320-10-00 / [id number] / Exactech 320-38-00 Equinoxe 38mm Reverse Shoulder +0mm Liner Humeral - [id number] - [id number] Implanted:Qty: 1 on 08/20/2018 by Aric Vang MD at [facility] Left: Shoulder Exactech 06/30/2023 320-38-00 / [id number] / Insurance [facility] REF R HMO REF R HMO REF Advance Directives For more information, please contact: [phone] * Full Code (Latest Code Status on File) Date Activated Date Inactivated Comments 08/20/2018 12:07 PM 08/22/2018 9:04 PM Care Teams Senior Risk Manager Relationship Specialty Start Date End Date Marshall Edouard DO PCP - General Internal Medicine 07/11/18
== END 2024-12-03 11:44 | disposition home or self-care (01) ==
PROVIDERS: PCP Nurse Practitioner; Visit Provider Orthopaedic Surgery
DX: R60.9 Edema, unspecified (principal)
CPT/HCPCS: 93971

== ENCOUNTER 2025-01-06 13:26 | Outpatient (CLI) | payer MEDICARE, SELFPAY ==
--- OUTSIDE RECORDS SUMMARY | 2025-01-06 13:32 | XMS_ITS | Clinical Summary ---
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 Gender Identity Not on file Sexual Orientation [...] on file Medical Devices Implanted Type Area Water Plant Operator Device Identifier Shelf Expiration Date Model / Serial / Lot Exactech 320-20- Reverse Torque Define Shoulder Kit Screw - [id number] - [id number] Implanted:Qty: 1 on 08/20/2018 by Aric Vang MD at [facility] Left: Shoulder Exactech 07/08/2023 320-20-00 / [id number] / Exactech 320-15-05 Equinoxe Lock Reverse Shoulder Glenosphere Screw Bone - [id number] - [id number] Implanted:Qty: 1 on 08/20/2018 by Aric Vang MD at [facility] Left: Shoulder Exactech 04/09/2023 320-15-05 / [id number] / Exactech 320-15-03 Equinoxe Augment Posterior Glenoid Shoulder 8d Plate Bone - [id number] - [id number] Implanted:Qty: 1 on 08/20/2018 by Aric Vang MD at [facility] Left: Shoulder Exactech 11/12/2027 320-15-03 / [id number] / Exactech 320-20-38 Equinoxe 4.5mm 38mm Kit Compression Lock Cap Reverse Shoulder - [id number] - [id number] Implanted:Qty: 1 on 08/20/2018 by Aric Vang MD at [facility] Left: Shoulder Exactech 09/06/2022 320-20-38 / [id number] / Exactech 320-01-38 38mm Glenosphere Reverse Shoulder Component Glenoid - [id number] - [id number] Implanted:Qty: 1 on 08/20/2018 by Aric Vang MD at [facility] Left: Shoulder Exactech 07/03/2028 320-01-38 / [id number] / Exactech 320-20-34 Equinoxe 4.5mm 34mm Kit Compression Lock Cap Reverse Shoulder - [id number] - [id number] Implanted:Qty: 1 on 08/20/2018 by Aric Vang MD at [facility] Left: Shoulder Exactech 06/14/2023 320-20-34 / [id number] / Exactech 300-01-11 Equinoxe 11mm Press Fit Primary Shoulder Stem Humeral - [id number] - [id number] Implanted:Qty: 1 on 08/20/2018 by Aric Vang MD at [facility] Left: Humerus Exactech 12/20/2027 300-01-11 / [id number] / Exactech 320-10-00 Equinoxe Reverse Shoulder +0mm Tray Humeral Adapter - [id number] - [id number] Implanted:Qty: 1 on 08/20/2018 by Aric Vang MD at [facility] Left: Humerus Exactech 07/21/2028 320-10-00 / [id number] / Exactech 320-38-00 Equinoxe 38mm Reverse Shoulder +0mm Liner Humeral - [id number] - [id number] Implanted:Qty: 1 on 08/20/2018 by Aric Vang MD at [facility] Left: Shoulder Exactech 06/30/2023 320-38-00 / [id number] / Insurance R HMO REF Member Subscriber Plan / Payer (Ef fective 2018-Present) Name:Nikko Hassan Relation to Subscriber:Self Name:Nikko Hassan Payer ID:[id number] (NAIC) Type:[facility] Address: [place] [id number] HMO REF Member Subscriber Plan / Payer (Ef fective 2018-Present) Name:Nikko Hassan Relation to Subscriber:Self Name:Nikko Hassan Payer ID:[id number] (NAIC) Type:[facility] MEDIC[facility] Address: [place] [id number] R HMO REF Member Subscriber Plan / Payer (Ef fective 2018-Present) Name:Nikko Hassan Relation to Subscriber:Self Name:Nikko Hassan Payer ID:[id number] (NAIC) Type:[facility] MEDIC[facility] Address: [place] [id number] Advance Directives For more information, please contact: [phone] * Full Code (Latest Code Status on File) Date Activated Date Inactivated Comments 08/20/2018 12:07 PM 08/22/2018 9:04 PM Care Teams Search Marketing Coordinator Relationship Specialty Start Date End Date Marshall Edouard, PCP - General Internal Medicine 07/11/18
[2025-01-06 15:40] LABS: Vitamin B12 216.0 pg/mL (239-931)
== END 2025-01-06 13:27 | disposition home or self-care (01) ==
LOC: ANHGOSHLAB 13:27
PROVIDERS: PCP Nurse Practitioner; Visit Provider Orthopaedic Surgery
DX: E53.8 Deficiency of other specified B group vitamins (principal)
CPT/HCPCS: 36415; 82607